=== PATIENT | male | born 1950 | race Caucasian/White ===

== ENCOUNTER 2019-01-07 02:46 | Outpatient (CLI) | payer MEDICARE, OTHER, SELFPAY ==
[2019-01-07 09:31] LABS: Anion Gap 8.8 mmol/L (3-11); BUN 21 mg/dL (7-18); CO2 28.2 mmol/L (21.0-32.0); CREATININE 1.07 mg/dL (0.70-1.30); Calcium 9.6 mg/dL (8.5-10.1); Chloride 102 mmol/L (98-107); Cholesterol 256 mg/dL (50-200); Glucose 106 mg/dL (70-100); HDL Cholesterol 74 mg/dL (40-60); LDL CHOLESTEROL 160 mg/dL (<100); Potassium 4.3 mmol/L (3.5-5.1); Sodium 139 mmol/L (136-145); Triglyceride 76 mg/dL (30-150)
[2019-01-10 09:53] LABS: PSA, Screening 2.7 ng/ml (0-6.5)
== END 2019-01-07 03:06 ==
PROVIDERS: PCP Emergency Medicine; Visit Provider Family Medicine
DX: I10 Essential (primary) hypertension (principal); N40.0 Benign prostatic hyperplasia without lower urinary tract symptoms; Z12.5 Encounter for screening for malignant neoplasm of prostate
CPT/HCPCS: 36415; 80048; 80061; 83721; 84153

== ENCOUNTER 2019-01-21 13:56 | Outpatient (CLI) | payer MEDICARE, OTHER, SELFPAY ==
[2019-01-21 14:21] LABS: Abs Immature Grans 0.04 k/cumm (0.0-0.09); Absolute Basophil Count 0.01 k/cumm (0.0-0.2); Absolute Eosinophil Count 0.12 k/cumm (0.0-0.7); Absolute Lymphocyte Count 1.88 k/cumm (1.2-3.4); Absolute Monocyte Count 0.73 k/cumm (0.11-0.7); Absolute Neutrophil Count 3.61 k/cumm (1.2-6.7); Basophils % 0.2; Eosinophils % 1.9; HCT 44.1 % (40.0-50.0); Immature Grans % 0.6; Lymphocytes % 29.4; Mean Corpuscular Hemoglobin 30.9 pg (27.0-33.0); Mean Corpuscular Volume 90.9 fL (80-95); Mean Platelet Volume 10.3 fL (8.0-11.0); Monocytes % 11.4; Neutrophils % 56.5; Platelet Count 173 x1000/uL (130-400); RBC 4.85 m/cumm (4.50-6.00); RBC Distribution Width 13.2 % (11.8-14.1); White Blood Cell Count 6.39 k/cumm (4.4-10.8)
[2019-01-21 14:52] LABS: D-Dimer 4422 ng/mlFEU (<500)
[2019-01-21 15:15] LABS: ALT 30 U/L (12-78); AST 13 U/L (15-37); Alkaline Phosphatase 95 U/L (46-116); Anion Gap 8.6 mmol/L (3-11); BUN 17 mg/dL (7-18); Bilirubin, Total 1.7 mg/dL (0.2-1.0); C-Reactive Protein 0.96 mg/dL (0.0-0.3); CO2 28.4 mmol/L (21.0-32.0); CREATININE 0.92 mg/dL (0.70-1.30); Calcium 9.6 mg/dL (8.5-10.1); Chloride 103 mmol/L (98-107); Glucose 95 mg/dL (70-100); NT-proBNP 120 pg/mL; Potassium 4.5 mmol/L (3.5-5.1); Sodium 140 mmol/L (136-145); Total Protein 7.1 g/dL (6.4-8.2)
[2019-01-21] MEDS: Omnipaque 350 MG/ML 100 ML BTL IJ (15:19)
--- NOTE | 2019-01-21 15:20 | DI.CT_ITS ---
SYMPTOMS/DIAGNOSIS: DYSPNEA ON EXERTION X 1 WEEK, + D-DIMER, FLEW ON PLAN [address] ANGIOGRAPHY, CHEST: CT angiography was performed with multi slice acquisition and multi planar and 3D reconstruction. CT angiography of the chest was performed with a bolus infusion of 100 cc of Omnipaque 350. Images obtained through the upper abdomen show unremarkable appearance of visualized portions of the liver, spleen and pancreas. No mediastinal or hilar adenopathy seen. Tracheobronchial tree appears intact. Thoracic aorta is of normal diameter and there is no evidence of dissection. There are multiple pulmonary emboli bilaterally with emboli straddling the lobar vessels and extending into segmental and subsegmental vessels in multiple distributions bilaterally. There are small peripheral mass-like radiodensities seen on the right peripherally in the lower lobe posteriorly and also associated with the minor fissure on the right anteriorly. These have an appearance which may represent rounded atelectasis or Torres's hump of pulmonary infarct; however, other etiologies are not excluded on the basis of this examination and follow-up CT is requested following treatment to exclude intrapulmonary mass. CONCLUSION: Multiple pulmonary emboli with moderate to large clot burden as described above. Peripheral nodular radiodensities in right upper lobe and right lower lobe; these may represent peripheral pulmonary infarcts, but other etiologies including neoplasm are not excluded and a follow-up chest CT is requested following treatment to document resolution of these findings.
[2019-01-21 16:23] LABS: ESR 10 MM/HR (1-20)
== END 2019-01-21 14:16 ==
PROVIDERS: PCP Emergency Medicine; Visit Provider Emergency Medicine
DX: R06.09 Other forms of dyspnea (principal); I50.9 Heart failure, unspecified; R79.1 Abnormal coagulation profile; I26.99 Other pulmonary embolism without acute cor pulmonale; J98.4 Other disorders of lung
CPT/HCPCS: 71275; 80053; 85652; 83880; 85025; 85379; 86140; J3490

== ENCOUNTER 2019-01-21 15:37 | Observation (INO) | payer MEDICARE, OTHER, SELFPAY ==
[2019-01-21] VITALS (29 sets, daily range): BP systolic 117–159; BP diastolic 75–91; PULSE 55–149; RESP 12–23; TEMP 36.1–36.7; O2SAT 94–100
--- NOTE | 2019-01-21 16:00 | W.ED.GENAD ---
Discharge Plan Disposition Patient Disposition: [facility] INPATIENT Condition: Improving Discharge Details Chief Complaint: SOB Clinical Impression: Pulmonary embolism, bilateral Primary Care Provider: [facility] ED Provider: Enrique Mcdonald Home Meds and New Rx's Prescriptions: No Action aspirin [Aspir-81] 81 MG tablet,delayed release (DR/EC) 81 mg PO DAILY RF: 0 polyethylene glycol 3350 [Miralax] 17 GM powder in packet 255 gm PO for colonoscopy Qty: 1 RF: 0 lisinopril 20 MG tablet 20 mg PO BID Qty: 180 RF: 4 atorvastatin 20 mg tablet 20 mg PO DAILY Qty: 90 RF: 4 Medical Decision Making 68-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 The patient states he has had months of intermittent episodes of dyspnea on exertion, primarily when jogging. He notes that he returned home from wintering in [place] in early December. He notes over the past 3 to 5 days time he has had an increase in his intolerance of exercise and notes that he was unable to jog his usual 3 to 4 miles yesterday. He denies any chest pain or palpitations. Due to the dyspnea on exertion, the patient was referred for outpatient CT scan and as above it showed bilateral PEs without evidence of right heart strain. Patient had outpatient blood work obtained which is still pending. Upon arrival, he was placed on a monitored bed, EKG obtained and images reviewed with Dr. Magaña. Patient is in no acute distress and vital signs are reassuring with normal oxygenation. Laboratories reassuring with negative troponin. Patient initiated on heparin drip and will require admission. Lab Data Lab results reviewed: Yes I reviewed the patient's lab results. Laboratory Results - last 24 hr 01/21/19 01/21/19 14:15 14:15 PT 9.5 INR 1.0 APTT 21.4 Sodium Cancelled Potassium Cancelled Chloride Cancelled Carbon Dioxide Cancelled Anion Gap Cancelled BUN Cancelled Creatinine Cancelled Estimated GFR/1.73 m2 Cancelled Glucose Cancelled Calcium Cancelled Magnesium 2.3 Total Bilirubin Cancelled AST Cancelled ALT Cancelled Alkaline Phosphatase Cancelled Troponin I < 0.02 Total Protein Cancelled Albumin Cancelled ECG Data Attestation: I personally reviewed and interpreted this ECG (s) as follows: Interpretation: Normal sinus rhythm with a rate of 54, the QRS is narrow, and no ST segment elevation. HPI General Mode of arrival: ambulatory. Date/Time Provider Initiated Documentation: 01/21/19 15:38. Limitations to Documentation: no limitations. Information obtained by: patient. History of Present Illness 68 year old M presents to the emergency department with the chief complaint of I have bilateral PEs on my CAT scan this afternoon. RICCI for months, described as mild, Quality is described as dull, and is localized to the chest. Patient reports no radiation. Patient started experiencing this week(s) and it has been intermittent. Rest improves symptom(s), Other factors that worsen symptoms (Exercise) . Patient notes denies chest pain, syncope and weakness. Patient did receive the following treatments prior to arrival, none Related Data Home Medications Medication Instructions Recorded Confirmed aspirin [Aspir 81] 81 mg PO DAILY tab-cap 06/08/17 01/21/19 polyethylene glycol 3350 [Miralax] 255 gm PO for colonoscopy #1 gm 06/08/17 01/21/19 lisinopril 20 mg PO BID #180 tab-cap 05/10/18 01/21/19 atorvastatin 20 mg tablet 20 mg PO DAILY #90 tab 01/14/19 01/21/19 Previous Rx's Medication Instructions Recorded polyethylene glycol 3350 [Miralax] 255 gm PO for colonoscopy #1 gm 06/08/17 lisinopril 20 mg PO BID #180 tab-cap 05/10/18 atorvastatin 20 mg tablet 20 mg PO DAILY #90 tab 01/14/19 Allergies Allergy/AdvReac Type Severity Reaction Status Date / Time No Known Allergies Allergy Unverified 01/21/19 15:44 General Stated Complaint: SOB DIANNA: 3 Review of Systems Review of Systems Travel home from [place] in early December. No leg pain or swelling. Increased shortness of breath with 4 mile jog 2 days ago. 8 systems reviewed and otherwise neg [facility] Medical History HTN (hypertension) Surgical History Cholecystectomy Colonoscopy - [facility] (06/24/17) Social History Smoking/Tobacco Use Status: Never Alcohol Intake: current Alcohol Intake frequency: a few times a week Drug use: Never Substance use type: does not use Do you feel safe at home: Yes Do you feel safe in your relationship?: Yes Exam Narrative Exam Narrative: GEN: awake, alert, oriented 3. Pleasant, well groomed, interactive. HEAD: Normocephalic, atraumatic ENT: Mucous membranes moist, oropharynx unremarkable, External ear exam unremarkable EYES: PERRL, EOMI NECK: Full ROM, no KIN, no menigismus CHEST/RESP: Nontender, clear to auscultation bilateral, no wheeze/rhonchi/rales CARDIOVASCULAR: RRR, no murmur, rub bill. 2+ Rad pulse bilateral ABDOMEN: Soft, nontender, no mass. +Bowel sounds EXT: Full ROM, no edema, no rash Neuro: Grossly normal neurologic exam, conversant, interactive. Psych: Speech fluent, thoughts congruent, affect normal Course Vital Signs Temperature 36.7 C 01/21/19 15:42 Pulse 55 L 01/21/19 15:42 Respiratory Rate 17 01/21/19 15:42 Blood Pressure 155/86 H 01/21/19 15:42 Pulse Oximetry 98 01/21/19 15:42 Temperature 36.7 C 01/21/19 15:42 Temperature Source Temporal Artery Scan 01/21/19 15:42 Pulse 55 L 01/21/19 15:42 Respiratory Rate 17 01/21/19 15:42 Respiratory Effort Non-Labored 01/21/19 15:42 Blood Pressure 155/86 H 01/21/19 15:42 Pulse Oximetry 98 01/21/19 15:42 Oxygen Delivery Method Room Air 01/21/19 15:42 Oxygen Flow Rate 0 01/21/19 15:42 Pain Level 0 01/21/19 15:42
--- NOTE | 2019-01-21 16:04 | ED.GENADUL_ITS ---
Discharge Plan Disposition Patient Disposition: [facility] INPATIENT Condition: Improving Discharge Details Chief Complaint: SOB Clinical Impression: Pulmonary embolism, bilateral Primary Care Provider: [facility] ED Provider: Enrique Mcdonald Home Meds and New Rx's Prescriptions: No Action aspirin [Aspir-81] 81 MG tablet,delayed release (DR/EC) 81 mg PO DAILY RF: 0 polyethylene glycol 3350 [Miralax] 17 GM powder in packet 255 gm PO for colonoscopy Qty: 1 RF: 0 lisinopril 20 MG tablet 20 mg PO BID Qty: 180 RF: 4 atorvastatin 20 mg tablet 20 mg PO DAILY Qty: 90 RF: 4 Medical Decision Making 68-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 The patient states he has had months of intermittent episodes of dyspnea on exertion, primarily when jogging. He notes that he returned home from wintering in [place] in early December. He notes over the past 3 to 5 days time he has had an increase in his intolerance of exercise and notes that he was unable to jog his usual 3 to 4 miles yesterday. He denies any chest pain or palpitations. Due to the dyspnea on exertion, the patient was referred for outpatient CT scan and as above it showed bilateral PEs without evidence of right heart strain. Patient had outpatient blood work obtained which is still pending. Upon arrival, he was placed on a monitored bed, EKG obtained and images reviewed with Dr. Magaña. Patient is in no acute distress and vital signs are reassuring with normal oxygenation. Laboratories reassuring with negative troponin. Patient initiated on heparin drip and will require admission. Lab Data Lab results reviewed: Yes I reviewed the patient's lab results. Laboratory Results - last 24 hr 01/21/19 01/21/19 14:15 14:15 PT 9.5 INR 1.0 APTT 21.4 Sodium Cancelled Potassium Cancelled Chloride Cancelled Carbon Dioxide Cancelled Anion Gap Cancelled BUN Cancelled Creatinine Cancelled Estimated GFR/1.73 m2 Cancelled Glucose Cancelled Calcium Cancelled Magnesium 2.3 Total Bilirubin Cancelled AST Cancelled ALT Cancelled Alkaline Phosphatase Cancelled Troponin I < 0.02 Total Protein Cancelled Albumin Cancelled ECG Data Attestation: I personally reviewed and interpreted this ECG (s) as follows: Interpretation: Normal sinus rhythm with a rate of 54, the QRS is narrow, and no ST segment elevation. HPI General Mode of arrival: ambulatory . Date/Time Provider Initiated Documentation: 01/21/19 15:38 . Limitations to Documentation: no limitations . Information obtained by: patient . History of Present Illness 68 year old M presents to the emergency department with the chief complaint of I have bilateral PEs on my CAT scan this afternoon. RICCI for months, described as mild, Quality is described as dull, and is localized to the chest. Patient reports no radiation. Patient started experiencing this week(s) and it has been intermittent. Rest improves symptom(s), Other factors that worsen symptoms (Exercise) . Patient notes denies chest pain, syncope and weakness. Patient did receive the following treatments prior to arrival, none Related Data Home Medications Medication Instructions Recorded Confirmed aspirin [Aspir 81] 81 mg PO DAILY tab-cap 06/08/17 01/21/19 polyethylene glycol 3350 [Miralax] 255 gm PO for colonoscopy #1 gm 06/08/17 01/21/19 lisinopril 20 mg PO BID #180 tab-cap 05/10/18 01/21/19 atorvastatin 20 mg tablet 20 mg PO DAILY #90 tab 01/14/19 01/21/19 Previous Rx's Medication Instructions Recorded polyethylene glycol 3350 [Miralax] 255 gm PO for colonoscopy #1 gm 06/08/17 lisinopril 20 mg PO BID #180 tab-cap 05/10/18 atorvastatin 20 mg tablet 20 mg PO DAILY #90 tab 01/14/19 Allergies Allergy/AdvReac Type Severity Reaction Status Date / Time No Known Allergies Allergy Unverified 01/21/19 15:44 General Stated Complaint: SOB DIANNA: 3 Review of Systems Review of Systems Travel home from [place] in early December. No leg pain or swelling. Increased shortness of breath with 4 mile jog 2 days ago. 8 systems reviewed and otherwise neg [facility] Medical History HTN (hypertension) Surgical History Cholecystectomy Colonoscopy - [facility] (06/24/17) Social History Smoking/Tobacco Use Status: Never Alcohol Intake: current Alcohol Intake frequency: a few times a week Drug use: Never Substance use type: does not use Do you feel safe at home: Yes Do you feel safe in your relationship?: Yes Exam Narrative Exam Narrative: GEN: awake, alert, oriented 3. Pleasant, well groomed, interactive. HEAD: Normocephalic, atraumatic ENT: Mucous membranes moist, oropharynx unremarkable, External ear exam unremarkable EYES: PERRL, EOMI NECK: Full ROM, no KIN, no menigismus CHEST/RESP: Nontender, clear to auscultation bilateral, no wheeze/rhonchi/rales CARDIOVASCULAR: RRR, no murmur, rub bill. 2+ Rad pulse bilateral ABDOMEN: Soft, nontender, no mass. +Bowel sounds EXT: Full ROM, no edema, no rash Neuro: Grossly normal neurologic exam, conversant, interactive. Psych: Speech fluent, thoughts congruent, affect normal Course Vital Signs Temperature 36.7 C 01/21/19 15:42 Pulse 55 L 01/21/19 15:42 Respiratory Rate 17 01/21/19 15:42 Blood Pressure 155/86 H 01/21/19 15:42 Pulse Oximetry 98 01/21/19 15:42 Temperature 36.7 C 01/21/19 15:42 Temperature Source Temporal Artery Scan 01/21/19 15:42 Pulse 55 L 01/21/19 15:42 Respiratory Rate 17 01/21/19 15:42 Respiratory Effort Non-Labored 01/21/19 15:42 Blood Pressure 155/86 H 01/21/19 15:42 Pulse Oximetry 98 01/21/19 15:42 Oxygen Delivery Method Room Air 01/21/19 15:42 Oxygen Flow Rate 0 01/21/19 15:42 Pain Level 0 01/21/19 15:42
[2019-01-21 16:26] LABS: PTT Activated 21.4 sec (21.0-31.4); Prothrombin Time 9.5 sec (9.3-11.0)
[2019-01-21 16:34] LABS: Magnesium 2.3 mg/dL (1.8-2.4)
[2019-01-21 16:36] LABS: Troponin I < 0.02 ng/mL (0.00-0.06)
[2019-01-21] MEDS: Heparin 5,000 UNITS/ML VIAL 5200 UNITS IV (16:36)
[2019-01-21] MEDS: Heparin 1,000 UNITS/ML VIAL 1800 UNITS IVP (17:54)
--- NOTE | 2019-01-21 20:04 | HPE_ITS ---
Date of service: 01/21/19 Time of Service: 20:04 Assessment and Plan (1) Pulmonary embolism and infarction: Current visit: Yes Status: Acute Patient is currently on heparin drip at 1550 unit/hr (18 units/kg/hr) however ACCP guidelines recommend us of LMWH (enoxaparin or fondaparinux) as first line treatment for DVT/PE due to increased bioavailability leading to faster therapeutic anticoagulation compared to unfractionated heparin and also due to decreased bleeding and decreased recurrent thrombosis and improved mortality. One could make an argument that he could have been started on Eliquis 10 mg BID in the emergency room and discharged home as he meets clinical criteria for outpatient treatment i.e., no hypoxemia, no hypotension, no tachycardia, age less than 80 and no comorbidities. However, given the clot burden seen on his CT scan, it is prudent to initiate treatment as an inpatient and then transition to Eliquis and discharge him home tomorrow. His PESI score is 80 which puts him into class II or low risk. He should continue Eliquis at 10 mg bid for next week then continue at 5 mg bid for 3 months. At that time I would check his d-dimer off anticoagulation and if normal and no other risks for future PE/DVT he could come off anticoagulation. However he should be sure to get close follow up. Also he needs follow up imaging of his CT to be sure that the right sided abnormalities is indeed a Torres's hump, i.e. pulmonary infarct and not a mass. 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 He also jogs up to 4 miles a day and plays softball couple days a week. Approximately 2 months ago he had an episode of right-sided pleuritic chest pain that awoke him at night. He thought perhaps he had a case of pleurisy and treated this with some Tylenol. However this recurred over 3 nights. He did not have any unusual shortness of breath with this although he had noted that on a couple of his hikes he was having some difficulty with increased dyspnea on those hikes. He and his return to [place] December 24 on a prolonged airflight. Since returning to [place] he began training with his family to participate in the [facility] marathon relay. He is been jogging 3 to 4 miles a day and since last Thursday, 5 days ago he noticed he was having difficulty running his 3 to 4 miles. 2 days ago he went for a run he could not even complete 1/4 mile and when this occurred again on he decided to see his salesperson recreational vehicles Dr. Plaza. Dr. Banks put Dr. Ramey through a series of tests today that included multiple laboratory studies as well as a CT angiogram of the chest. In summary Dr. Ramey was found to have multiple bilateral pulmonary emboli with moderate to large clot burden. The bilateral pulmonary emboli straddle the lobar vessels and extend into the segmental and subsegmental vessels in multiple distributions bilaterally. There is also small peripheral masslike radiodensity seen on the right periphery in the lower lobe posteriorly associated with the minor fissure on the right anteriorly. These have a rounded atelectatic or [place] hump appearance consistent with pulmonary infarct. Although the radiologist indicated that he could not exclude the possibility of intrapulmonary mass and recommend a follow-up CT scan following treatment of his pulmonary emboli. Dr. Plaza sent the patient into the emergency room to be started on a heparin drip and treated for pulmonary emboli. Patient denies any previous history of pulmonary emboli or DVT. He denies any leg trauma or prolonged inactivity. He denies any leg swelling nor any edema. Patient gets his usual cancer screening tests including colonoscopies and prostate exams. He states that he had a normal PSA last month. I reviewed this result and indeed his PSA was 2.7 as of January 07, 2019. Patient has a history of tubular adenomas he had 3 of these removed in the fall [address] Steve Ardon. Patient is due for follow-up colonoscopy in 2019. I advised the patient that he should probably have it done later this year after completion of his anticoagulation treatment for his pulmonary emboli. Patient is a non-smoker and is very physically active and otherwise has no other risk factors for pulmonary emboli other than his recent air travel from [place] to [place] however his symptoms actually began prior to returning to [place] and only recently in the last week have his symptoms become severe enough that he is curtailed his activity. The rest of his laboratory work-up was unremarkable. His CMP showed normal renal and liver function test and normal electrolytes and normal glucose. His proBNP was within normal limits at 120. His CBC was within normal limits and his sed rate was normal at 10. His d-dimer however was elevated at 4422. Because of the patient's age the PERC rule for screening for pulmonary embolism did not apply to him. His revised Bertie score is 1 which would put him in the low probability for pulmonary embolism. And using the Wells criteria for PE he also fell in the low probability category. Fortunately for the patient his salesperson recreational vehicles had a high suspicion for PE and obtained a d-dimer which was over 4000 and this prompted a CTA of his chest which demonstrated the bilateral pulmonary emboli and pulmonary infarct. Patient was treated in the emergency room with a heparin bolus of 5200 units which was 60 units/kg and begun on a heparin drip at 1550 units/h. I spoke with the ER personnel and requested an additional dose of heparin 1800 units for a total of 7000 units which would be equivalent to 80 units/kg. However upon further review of a ACCP guidelines for treatment of acute pulmonary emboli it is recommended the patient be treated with low molecular weight heparin. I will transition him from unfractionated heparin drip to low molecular weight heparin at a dose of 90 mg subcutaneous every 12 hours. Tomorrow the patient can be transitioned over to Eliquis at a dose of 10 mg twice a day for 7 days and then 5 mg twice a day for the next 3 months. Review of Systems Review of Systems All systems reviewed & are unremarkable except as noted in HPI and below Constitutional Reports system reviewed and no additional complaints, except as docu Eyes Reports system reviewed and no additional complaints, except as docu ENT Reports system reviewed and no additional complaints, except as docu Cardiovascular Denies chest pain, Denies chest pain with activity, Denies syncope, Denies pedal edema, Denies edema, Denies leg edema, Denies lightheadedness, Reports dyspnea on exertion and Denies paroxysmal nocturnal dyspnea Respiratory Reports cough (dry nonproductive cough x few months), Denies hemoptysis, Denies pain on inspiration (none now but 2 months ago had 3 nights of R. sided pleuritic chest pain) and Reports dyspnea on exertion Gastrointestinal Reports system reviewed and no additional complaints, except as docu Genitourinary Reports system reviewed and no additional complaints, except [facility] Musculoskeletal Reports arthralgias (knees after prolonged runs; left shoulder rotator cuff injury), Denies joint swelling, Denies muscle weakness and Denies radiating pain into limb Integumentary/Breasts Reports system reviewed and no additional complaints, except as [facility] Neurologic Reports system reviewed and no additional complaints, except as docu and Denies syncope Endocrine Reports system reviewed and no additional complaints, except as [facility] Hematologic/Lymphatic Reports system reviewed and no additional complaints, except as [facility] Allergic/Immunologic Reports system reviewed and no additional complaints, except as docu PFSH Medical History Hyperlipidemia (Chronic) Essential hypertension (Chronic) Tubular adenoma of colon (Chronic 06/24/17) HTN (hypertension) Surgical History Cholecystectomy Colonoscopy - MAC (06/24/17) Family History Brother Prostate cancer Father Ischemic bowel disease Atherosclerotic peripheral vascular disease of extremity Mother Non Hodgkin's lymphoma Chemotherapy induced cardiomyopathy Myocardial infarction Social History Smoking/Tobacco Use Status: Never Alcohol Intake: current Alcohol Intake frequency: a few times a week Drug use: Never Substance use type: does not use Household members: family Housing: house Number of Children: 2 Education Level: other 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 Meds Home Medications Medication Instructions Recorded Confirmed Type aspirin [Aspir 81] 81 mg PO DAILY tab-cap 06/08/17 01/21/19 History lisinopril 20 mg PO BID #180 tab-cap 05/10/18 01/21/19 Rx atorvastatin 20 mg tablet 20 mg PO DAILY #90 tab 01/14/19 01/21/19 Rx Allergies Allergy/AdvReac Type Severity Reaction Status Date / Time No Known Allergies Allergy Unverified 01/21/19 15:44 Exam Const General: cooperative, no acute distress and well groomed Nutritional Appearance: average body habitus and well nourished Orientation: alert, awake and oriented x3 HENMT Head: normal to inspection, no palpable skull fracture, normocephalic and atraumatic Ears: external ears normal and TM's normal bilaterally General nose exam: external nose normal, nares normal and no nasal discharge Face and sinus: normal facial exam, sinuses nontender and face symmetric Mouth: oral mucosae normal, lip normal, tongue normal, oropharynx normal and moist mucous membranes Teeth and gingiva: dentition normal and gingiva normal Throat: posterior oropharynx normal and uvula midline Eyes General: appearance normal, both eyes and all related structures Visual Brandon: normal visual brandon by confrontation Alignment and Position: alignment normal Periorbital: periorbital findings normal Eyelids: eyelids normal Conjunctivae: conjunctivae normal Sclera: sclerae normal Cornea: corneas normal Pupils: PERRL, normal by confrontation and accommodation normal EOM: EOM intact bilaterally Direct ophthalmoscopy: normal light reflex, no photophobia, no papilledema, fundi normal bilaterally and anterior chamber normal Neck Neck: normal visual inspection, full ROM, no lymphadenopathy, trachea midline and supple Thyroid: thyroid normal Carotids: normal carotid upstroke Lymphatic: no lymphadenopathy noted Chest Chest: normal inspection of the chest and normal palpation of entire chest wall Resp Effort & Inspection: normal respiratory effort and able to speak in complete sentences Auscultation: clear to auscultation bilaterally Cardio Jugular venous pressure: no JVD Palpation: normal PMI Rate: regular rate Rhythm: regular rhythm Heart Sounds: S1 normal, S2 normal and normal, physiologic split S2 Pulses: normal peripheral pulses GI Inspection: normal to inspection Palpation: soft, no hepatosplenomegaly and nontender Percussion: normal to percussion Auscultation: normal bowel sounds Skin General skin exam: no rashes or lesions noted, elasticity normal and turgor normal Lesions: no lesions Rashes: no rashes Trauma: no lacerations or abrasions Hair: normal Nails: normal Neuro General: alert, awake, oriented x3, moves all extremities and no focal motor deficits Cognition: normal cognition Speech: speech normal Extrem General: normal to inspection, full ROM, normal capillary refill, no joint enlargement, no clubbing, cyanosis or edema and no calf tenderness bilaterally Right lower extremity: normal to inspection, full ROM, normal capillary refill and no joint enlargement; no edema Left lower extremity: normal to inspection, full ROM, normal capillary refill and no joint enlargement; no edema Psych Appearance: grossly normal and well kempt Mental Status: mental status grossly normal Speech and Movement: speech and movement normal Mood: congruent mood Affect: normal affect Attitude: cooperative Thought Process: normal Thought Content: normal Insight: insight good Judgment: judgment good Results Imaging CT scan - chest: image reviewed (CONCLUSION: Multiple pulmonary emboli with moderate to large clot burden as described above. Peripheral nodular radiodensities in right upper lobe and right lower lobe; these may represent peripheral pulmonary infarcts, but other etiologies including neoplasm are not excluded and a follow-up chest) Labs : 01/21/19 15:58 01/21/19 14:15 Laboratory Results - last 24 hr 01/21/19 01/21/19 14:15 14:15 PT 9.5 INR 1.0 APTT 21.4 Sodium Cancelled Potassium Cancelled Chloride Cancelled Carbon Dioxide Cancelled Anion Gap Cancelled BUN Cancelled Creatinine Cancelled Estimated GFR/1.73 m2 Cancelled Glucose Cancelled Calcium Cancelled Magnesium 2.3 Total Bilirubin Cancelled AST Cancelled ALT Cancelled Alkaline Phosphatase Cancelled Troponin I < 0.02 Total Protein Cancelled Albumin Cancelled Last Vital Signs Temp 36.1 C L 01/21/19 18:36 Pulse 60 01/21/19 18:36 Resp 14 01/21/19 18:36 BP 152/85 H 01/21/19 18:36 Pulse Ox 97 01/21/19 18:36
[2019-01-21 22:43] LABS: PTT Activated 70.7 sec (21.0-31.4)
[2019-01-22 00:08] VITALS: BP 126/68; PULSE 64; RESP 17; TEMP 36.3; O2SAT 96
[2019-01-22] MEDS: Enoxaparin 100 MG/ML SYR 90 MG SC (00:14)
[2019-01-22] MEDS: Lisinopril 20 MG TAB PO (08:38)
[2019-01-22] MEDS: Atorvastatin 20 MG TAB PO (08:38)
[2019-01-22 08:39] VITALS: BP 137/83; PULSE 53; RESP 16; TEMP 36.3; O2SAT 97
[2019-01-22 11:30] VITALS: BP 137/82; PULSE 55; RESP 18; TEMP 36.4; O2SAT 96
--- NOTE | 2019-01-22 11:50 | DI.CT_ITS ---
SYMPTOMS/DIAGNOSIS: NEW PULMONARY EMBOLI, ABDOMINAL DISCOMFORT CT OF THE ABDOMEN AND PELVIS: Comparison is made with a chest CT for PE dated January,. Filling defects are again seen in the lower lobe arteries consistent with the previously noted pulmonary emboli. There has been slight interval decrease in size of a previously noted right lower lobe nodule, now measuring 10 mm. No pleural or pericardial effusions are seen. The patient is status post cholecystectomy. The spleen, adrenals, pancreas and right kidney are unremarkable. There is a cyst at the lower pole of the left kidney. There is a circumaortic left renal vein. The aorta shows mild calcification. The appendix appears normal. There is no bowel dilatation or inflammatory change. There is no free air or free fluid. There is a small amount of fat in both inguinal canals. No free air, free fluid or adenopathy is seen. The prostate appears enlarged. The bladder is unremarkable. Degenerative changes are seen in the spine. IMPRESSION: No acute abnormality is seen in the abdomen or pelvis. A 10 mm nodule in the right lower lobe has decreased in size. Further followup is recommended.
[2019-01-22] MEDS: Omnipaque 350 MG/ML 100 ML BTL IJ (11:55)
[2019-01-22] MEDS: Apixaban 5 MG TAB 10 MG PO (12:07)
--- NOTE | 2019-01-22 12:59 | DI.VRAD_ITS ---
EXAM: CT Abdomen and Pelvis With Contrast EXAM DATE/TIME: 01/22/2019 10:04 AM CLINICAL HISTORY: 68 years old, male; Signs and symptoms; Other: New pes, abdominal discomfort TECHNIQUE: Imaging protocol: Axial computed tomography images of the abdomen and pelvis with intravenous contrast. Coronal and sagittal reformatted images were created and reviewed. Radiation optimization: All CT scans at this facility use at least one of these dose optimization techniques: automated exposure control; mA and/or kV adjustment per patient size (includes targeted exams where dose is matched to clinical indication); or iterative reconstruction. Contrast material: OMNIPAQUE; Contrast volume: 100 ml; Contrast route: IV; COMPARISON: CTA chest 01/21/2019. FINDINGS: Lungs: There is redemonstration of a 10 mm nodule in the subpleural right lower lobe. ABDOMEN: Liver: There are nonspecific liver hypodensities which likely represent cysts (24/4, 17/4, 22/4). the liver is otherwise unremarkable. Gallbladder and bile ducts: The patient is status post cholecystectomy. Pancreas: Normal. No ductal dilation. Spleen: Normal. No splenomegaly. Adrenals: Normal. No mass. Kidneys and ureters: There is a simple cyst in the left kidney. The kidneys are otherwise unremarkable with no evidence of hydronephrosis or perinephric stranding. Stomach and bowel: There is no evidence of diverticulitis. There is no evidence of intestinal obstruction. A knuckle of the descending colon extends into the left inguinal ring with no obstruction or wall edema. Appendix: The appendix is normal in appearance and there are no periappendiceal inflammatory changes. PELVIS: Bladder: Unremarkable as visualized. Reproductive: Unremarkable as visualized. ABDOMEN and PELVIS: Intraperitoneal space: Normal. No free air. No significant fluid collection. Bones/joints: There is multilevel degenerative disc disease.No acute osseous abnormality is identified. Soft tissues: Unremarkable. Vasculature: There are intraluminal filling defects in lower lobe pulmonary arteries consistent with the patient's known acute pulmonary emboli. Lymph nodes: Normal. No enlarged lymph nodes. IMPRESSION: 1. There is no evidence of bowel obstruction, abscess or free air. 2. No acute intra-abdominal or pelvic abnormality is identified. Remainder of non-emergent findings as described above. Dictated and Authenticated by: Denisse Zepeda MD. Ordering:MENDY Miller MD
--- NOTE | 2019-01-22 13:56 | DSE_ITS ---
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 He has a prior history of HTN and dyslipidemia, but is otherwise in good health and very active. Approximately 2 months ago the patient reports an episode of right-sided pleuritic chest pain that awoke him at night, but with discomfort alleviated with OTC pain medication. This was not accompanied by any shortness of breath. He also reported some subjective dyspnea on a few subsequent hikes while in [place]. He and his returned to [facility] a month ago on a prolonged airflight. Since returning to [place] he began training with his family to participate in the [facility] [employer] relay. He has been jogging 3 to 4 miles a day, but reports onset of dyspnea approximately 5 days prior to admission. 2 days prior to his admission he reports worsening dyspnea to the point that he was severely limited with his running, prompting a visit to his PCP Dr. Plaza. Work-up included fairly unremarkable labs with the exception of a significantly elevated DDimer, leading to a subsequent CT showing multiple b/l Pulmonary Emboli, with moderate to large clot burden. He also had evidence of likely pulmonary infarcts. The patient was at that time referred to the ED for admission. Since the time of admission Dr. Ramey has remained hemodynamically stable, without evidence of tachycardia, hypotension, or hypoxia. Given his complaints of recent increase in 'belching' and subjective mild abdominal discomfort a CT of the abdomen and pelvis was obtained, and ruled out occult malignancy. The patient also reports his routine health screening tests to be up to date, including Prostate exam and Colonoscopy. He has also had no prior history of DVT or PE, and has no evidence of LE Edema at this time. His labwork is also unremarkable. He was transitioned from Therapeutic Enoxaparin to oral Apixaban prior to discharge. At this time likely precipitous for patient's symptoms may be prolonged air travel, although his symptoms may have predated his trip back to [place] and therefore etiology remains ambiguous. Do recommend outpatient follow-up and consideration for potential Hematology consult as well. Also discussed potential addition of PPI for GI protection, which the patient will discuss with his PCP. Daily aspirin will be discontinued. A repeat CT of the chest is recommended in a few weeks' time to ensure that current abnormalities do represent pulmonary infarcts and not neoplasm. As there were no signs of RV strain on CT or by EKG an ECHO was not officially recommended to the patient, but can certainly be pursued as an outpatient if deemed appropriate - unfortunately access to ultrasound and ECHO was limited over the weekend at the time of patient's admission. Home Meds and New Rx's Prescriptions: New Eliquis 5 mg Tablet 5 mg PO BID Qty: 70 RF: 0 Continued lisinopril 20 MG tablet 20 mg PO BID Qty: 180 RF: 4 atorvastatin 20 mg tablet 20 mg PO DAILY Qty: 90 RF: 4 Discontinued aspirin [Aspir-81] 81 MG tablet,delayed release (DR/EC) 81 mg PO DAILY RF: 0 Discharge Instructions Stand Alone Forms: Nursing Discharge Form Referrals: Rayray Plaza DO [Primary Care Provider] - Activity:: No Strenuous Activity Equipment/Supplies:: No Equipment Needed Diet:: As Tolerated Discharge Orders Discharge Orders: Discharge Order (Routine); Ordered 01/22/19 Ordered By: Paul Person Discharge Data Discharge Date/Time-TO BE ENTERED AT DEPARTURE: 01/22/19 14:15 Exam Narrative Exam Narrative: General: Patient appears comfortable, AAOX3, NAD Neck: Supple CV: Regular, nontachycardic, S1S2, No rubs, murmurs, or gallops. Pulmonary: Clear to auscultation bilaterally, no crackles, wheezing, or rhonchi Abdomen: + Bowel Sounds, soft, nontender, nondistended Vascular: No lower extremity edema Psych: Normal mood and affect. DS: Data Vitals/I&O Vitals and I&O: Vital Signs Temperature 36.4 C L 01/22/19 11:30 Temperature Source Tympanic 01/22/19 11:30 Pulse 55 L 01/22/19 11:30 Pulse Rhythm Regular 01/22/19 08:10 Pulse 61 01/21/19 17:47 Respiratory Rate 18 01/22/19 11:30 Respiratory Effort Non-Labored 01/22/19 08:10 Respiratory Depth Normal 01/22/19 08:10 Respiratory Pattern Normal 01/22/19 08:10 Blood Pressure 137/82 01/22/19 11:30 Blood Pressure Mean 101 01/21/19 17:46 Pulse Oximetry 96 01/22/19 11:30 Oxygen Delivery Method Room Air 01/22/19 11:30 Oxygen Flow Rate 0 01/22/19 11:30 Pain Level 0 01/21/19 18:36 Intake & Output 01/21/19 01/22/19 01/22/19 23:59 11:59 23:59 Intake Total 98.167 / 98.167 600 / 600 Balance 98.167 / 98.167 600 / 600 Weight 84.8 kg Intake: IV 98.167 / 98.167 Oral 600 / 600 Other: Comment voiding at macie into toilet. urine not seen by this nurse. Patient denies difficulties. Voiding Methods Toilet Toilet Completed studies during hospitalization [Text1]: Exam(s) a CT:CT chest PE CTA SYMPTOMS/DIAGNOSIS: DYSPNEA ON EXERTION X 1 WEEK, + D-DIMER, FLEW ON PLAN [address] ANGIOGRAPHY, CHEST: CT angiography was performed with multi slice acquisition and multi planar and 3D reconstruction. CT angiography of the chest was performed with a bolus infusion of 100 cc of Omnipaque 350. Images obtained through the upper abdomen show unremarkable appearance of visualized portions of the liver, spleen and pancreas. No mediastinal or hilar adenopathy seen. Tracheobronchial tree appears intact. Thoracic aorta is of normal diameter and there is no evidence of dissection. There are multiple pulmonary emboli bilaterally with emboli straddling the lobar vessels and extending into segmental and subsegmental vessels in multiple distributions bilaterally. There are small peripheral mass-like radiodensities seen on the right peripherally in the lower lobe posteriorly and also associated with the minor fissure on the right anteriorly. These have an appearance which may represent rounded atelectasis or Torres's hump of pulmonary infarct; however, other etiologies are not excluded on the basis of this examination and follow-up CT is requested following treatment to exclude intrapulmonary mass. CONCLUSION: Multiple pulmonary emboli with moderate to large clot burden as described above. Peripheral nodular radiodensities in right upper lobe and right lower lobe; these may represent peripheral pulmonary infarcts, but other etiologies including neoplasm are not excluded and a follow-up chest CT is requested following treatment to document resolution of these findings. Exam(s) 01/22/2019 EXAM: CT Abdomen and Pelvis With Contrast EXAM DATE/TIME: 01/22/2019 10:04 AM CLINICAL HISTORY: 68 years old, male; Signs and symptoms; Other: New pes, abdominal discomfort TECHNIQUE: Imaging protocol: Axial computed tomography images of the abdomen and pelvis with intravenous contrast. Coronal and sagittal reformatted images were created and reviewed. Radiation optimization: All CT scans at this facility use at least one of these dose optimization techniques: automated exposure control; mA and/or kV adjustment per patient size (includes targeted exams where dose is matched to clinical indication); or iterative reconstruction. Contrast material: OMNIPAQUE; Contrast volume: 100 ml; Contrast route: IV; COMPARISON: CTA chest 01/21/2019. FINDINGS: Lungs: There is redemonstration of a 10 mm nodule in the subpleural right lower lobe. ABDOMEN: Liver: There are nonspecific liver hypodensities which likely represent cysts (24/4, 17/4, 22/4). the liver is otherwise unremarkable. Gallbladder and bile ducts: The patient is status post cholecystectomy. Pancreas: Normal. No ductal dilation. Spleen: Normal. No splenomegaly. Adrenals: Normal. No mass. Kidneys and ureters: There is a simple cyst in the left kidney. The kidneys are otherwise unremarkable with no evidence of hydronephrosis or perinephric stranding. Stomach and bowel: There is no evidence of diverticulitis. There is no evidence of intestinal obstruction. A knuckle of the descending colon extends into the left inguinal ring with no obstruction or wall edema. Appendix: The appendix is normal in appearance and there are no periappendiceal inflammatory changes. PELVIS: Bladder: Unremarkable as visualized. Reproductive: Unremarkable as visualized. ABDOMEN and PELVIS: Intraperitoneal space: Normal. No free air. No significant fluid collection. Bones/joints: There is multilevel degenerative disc disease.No acute osseous abnormality is identified. Soft tissues: Unremarkable. Vasculature: There are intraluminal filling defects in lower lobe pulmonary arteries consistent with the patient's known acute pulmonary emboli. Lymph nodes: Normal. No enlarged lymph nodes. IMPRESSION: 1. There is no evidence of bowel obstruction, abscess or free air. 2. No acute intra-abdominal or pelvic abnormality is identified. Remainder of non-emergent findings as described above. Labs on day of discharge: Labs from last 24 hours 01/21/19 01/21/19 01/21/19 22:25 14:15 14:15 WBC Cancelled RBC Cancelled Hgb Cancelled Hct Cancelled MCV Cancelled MCH Cancelled MCHC Cancelled RDW Cancelled Plt Count Cancelled MPV Cancelled Immature Gran % Cancelled Neutrophils % Cancelled Band Neutrophils % Cancelled Lymphocytes % Cancelled Atypical Lymphs % Cancelled Monocytes % Cancelled Eosinophils % Cancelled Basophils % Cancelled Metamyelocytes % Cancelled Myelocytes % Cancelled Promyelocytes % Cancelled Absolute Neutrophils Cancelled Absolute Lymphocytes Cancelled Absolute Monocytes Cancelled Absolute Eosinophils Cancelled Absolute Basophils Cancelled Nucleated RBCs Cancelled Differential Comment Cancelled Other Cell Type Cancelled RBC Morphology Cancelled Polychromasia Cancelled Hypochromasia Cancelled Poikilocytosis Cancelled Basophilic Stippling Cancelled Anisocytosis Cancelled Microcytosis Cancelled Macrocytosis Cancelled Spherocytes Cancelled Target Cells Cancelled Tear Drop Cells Cancelled Ovalocytes Cancelled Stomatocytes Cancelled Dill-Greenock Bodies Cancelled Martinez Cells Cancelled Acanthocytes (Spur) Cancelled Schistocytes Cancelled PT 9.5 INR 1.0 APTT 70.7 H D 21.4 Sodium Potassium Chloride Carbon Dioxide Anion Gap BUN Creatinine Estimated GFR/1.73 m2 Glucose Calcium Magnesium Total Bilirubin AST ALT Alkaline Phosphatase Troponin I Total Protein Albumin 01/21/19 14:15 WBC RBC Hgb Hct MCV MCH MCHC RDW Plt Count MPV Immature Gran % Neutrophils % Band Neutrophils % Lymphocytes % Atypical Lymphs % Monocytes % Eosinophils % Basophils % Metamyelocytes % Myelocytes % Promyelocytes % Absolute Neutrophils Absolute Lymphocytes Absolute Monocytes Absolute Eosinophils Absolute Basophils Nucleated RBCs Differential Comment Other Cell Type RBC Morphology Polychromasia Hypochromasia Poikilocytosis Basophilic Stippling Anisocytosis Microcytosis Macrocytosis Spherocytes Target Cells Tear Drop Cells Ovalocytes Stomatocytes Dill-Greenock Bodies Martinez Cells Acanthocytes (Spur) Schistocytes PT INR APTT Sodium Cancelled Potassium Cancelled Chloride Cancelled Carbon Dioxide Cancelled Anion Gap Cancelled BUN Cancelled Creatinine Cancelled Estimated GFR/1.73 m2 Cancelled Glucose Cancelled Calcium Cancelled Magnesium 2.3 Total Bilirubin Cancelled AST Cancelled ALT Cancelled Alkaline Phosphatase Cancelled Troponin I < 0.02 Total Protein Cancelled Albumin Cancelled [facility] Medical History Pulmonary embolism and infarction (Acute ~01/21/19) Hyperlipidemia (Chronic) Essential hypertension (Chronic) Tubular adenoma of colon (Chronic 06/24/17) HTN (hypertension) Surgical History Cholecystectomy Colonoscopy - [facility] (06/24/17) Family History Brother Prostate cancer Father Ischemic bowel disease Atherosclerotic peripheral vascular disease of extremity Mother Non Hodgkin's lymphoma Chemotherapy induced cardiomyopathy Myocardial infarction Social History Smoking/Tobacco Use Status: Never Alcohol Intake: current Alcohol Intake frequency: a few times a week Drug use: Never Substance use type: does not use Household members: family Housing: house Number of Children: 2 Education Level: other 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
--- NOTE | 2019-01-22 17:17 | PDOC.CMDIS ---
LACE Index Scoring Tool - Questions: Length of Stay (in days): 1 Acuity (Admit via E.D.?): Yes E.D. Visits: 1 - Answers: Total Score: 5 Risk of Readmission: Low Risk Care Management Discharge Reason for Hospitalization: Bilateral Pulmonary emboli Discharge Plan: Donnell will return home and no services are needed. He will drive his own car. Patient/Family Education Needs: Discharge insructions and outpatient appointments.
== END 2019-01-22 14:15 | disposition home or self-care (01) ==
LOC: ER 18:21 → MS 19:22
PROVIDERS: Admitting Provider Internal Medicine; Emergency Provider Emergency Medicine; PCP Emergency Medicine; Visit Provider Internal Medicine
DX: I26.99 Other pulmonary embolism without acute cor pulmonale (principal); I10 Essential (primary) hypertension; E78.5 Hyperlipidemia, unspecified
CPT/HCPCS: 36415; 71275; 80053; 85652; 93005; 96365; 96366; 96376; 99217; 99220; 99285; 74177; 83735; 83880; 84484; 85025; 85379; 85610; 85730; 86140; 93010; G0378; J1644; J1650; J3490

== ENCOUNTER 2019-01-26 10:18 | Outpatient (CLI) | payer MEDICARE, OTHER, SELFPAY ==
--- NOTE | 2019-01-26 10:15 | DI.US_ITS ---
SYMPTOM/DIAGNOSIS: PE AND INFARCTION, I26.99 DUPLEX VENOUS ULTRASOUND BOTH LOWER EXTREMITIES: Duplex evaluation of the deep venous system of both lower extremities was performed according to the usual protocol. There is no evidence of DVT in the right deep venous circulation. There is visible thrombus in the left deep veins from the proximal popliteal vein through the posterior tibial veins. This thrombus is non occlusive. No thrombus is identified more proximally. CONCLUSION: Left DVT, non occlusive, popliteal and PTV.
== END 2019-01-26 10:38 ==
PROVIDERS: PCP Emergency Medicine; Visit Provider Emergency Medicine
DX: I26.99 Other pulmonary embolism without acute cor pulmonale (principal); I82.432 Acute embolism and thrombosis of left popliteal vein; I82.442 Acute embolism and thrombosis of left tibial vein
CPT/HCPCS: 93970

== ENCOUNTER 2019-04-08 03:13 | Outpatient (CLI) | payer MEDICARE, OTHER, SELFPAY ==
[2019-04-08 09:23] LABS: Calculated LDL 73 mg/dL; Cholesterol 142 mg/dL (50-200); HDL Cholesterol 58 mg/dL (40-60); Triglyceride 57 mg/dL (30-150)
== END 2019-04-08 03:33 ==
PROVIDERS: PCP Emergency Medicine; Visit Provider Emergency Medicine
DX: E78.5 Hyperlipidemia, unspecified (principal)
CPT/HCPCS: 36415; 80061; 83721

== ENCOUNTER 2019-07-13 07:51 | Outpatient (CLI) | payer MEDICARE, OTHER, SELFPAY ==
--- NOTE | 2019-07-13 12:02 | DI.US_ITS ---
EXAM: US THYROID CLINICAL HISTORY: left nodule E04.1 NONTOXIC SINGLE THYROID NODULE TECHNIQUE: Ultrasound performed using standard protocol. COMPARISON: No priors for comparison FINDINGS: The right lobe of the thyroid gland measures 4.6 x 1.2 x 1.5 cm. There are numerous thyroid nodules on the right. The largest is seen in the upper pole and measures 0.7 x 0.7 x 0.4 cm. There is some internal blood flow and contains both cystic and solid components. Several similar nodules are seen in the right lobe. The left lobe measures 3.8 x 1.1 x 1.2 cm. There are multiple solid nodules in the left lobe. The do minant nodule in the thyroid gland is in the inferior pole of the left lobe. It measures 1.6 x 1.2 x 1.3 cm. It is solid with internal blood flow. There are echogenic foci seen internally suggesting calcifications. The isthmus is within normal limits at 3.5 mm. IMPRESSION: Multinodular thyroid gland. There is a suspicious 1.6 x 1.2 x 1.3 cm solid vascular nodule in the lo wer pole of the left lobe. Biopsy should be considered for further evaluation.
== END 2019-07-13 08:11 ==
PROVIDERS: PCP Emergency Medicine; Visit Provider Emergency Medicine
DX: E04.1 Nontoxic single thyroid nodule (principal); E04.2 Nontoxic multinodular goiter
CPT/HCPCS: 76536

== ENCOUNTER 2020-05-08 08:03 | Outpatient (REF) | payer MEDICARE, OTHER, SELFPAY ==
[2020-05-08 13:28] LABS: BUN 26 mg/dL (7-18); Calcium 9.5 mg/dL (8.5-10.1); Calculated LDL 84 mg/dL (<100); Chloride 108 mmol/L (98-107); Cholesterol 153 mg/dL (<200); Glucose 112 mg/dL (74-106); HDL Cholesterol 58 mg/dL (40-60); Potassium 5.4 mmol/L (3.5-5.1); Sodium 140 mmol/L (136-145); Triglyceride 56 mg/dL (<150)
== END 2020-05-08 08:23 ==
LOC: LBN 08:03
PROVIDERS: PCP Emergency Medicine; Visit Provider Emergency Medicine
DX: E78.5 Hyperlipidemia, unspecified (principal); I10 Essential (primary) hypertension
CPT/HCPCS: 80048; 80061

== ENCOUNTER 2020-07-04 00:58 | Outpatient (CLI) | payer MEDICARE, OTHER, SELFPAY ==
--- NOTE | 2020-07-04 07:30 | DI.US_ITS ---
APPROVED REPORT EXAM: Comprehensive 2D, Doppler, and color-flow Echocardiogram Patient Location: Out-Patient Lithographic General Worker: Pauline Gunter RDCS (AE) Indications: Dilated Ascending Aorta Other Information Study Quality: Adequate Conclusion Left Ventricle : The left ventricle is normal size. The left ventricular systolic function is low nor mal. There is normal left ventricular wall thickness. There is normal LV segmental wall motion. The left ventricular diastolic function is normal. LVEF is 50%. Right Ventricle : The right ventricle is normal size. The right ventricular systolic function is norm al. The RVSP is 22.5 mmHg. Atria : The left atrium size is normal. The right atrium size is normal. Aortic Valve : The Aortic valve is sclerotic. Aortic valve is trileaflet. There is no aortic valvular stenosis. Mitral Valve : Mild mitral annular calcification. No evidence of mitral valve stenosis. Mild mitral r egurgitation. Great Vessels : The aortic root is normal in size. The ascending aorta is moderately dilated (4.1cm). Aortic arch is normal in caliber. IVC is normal in size and collapses >50% with inspiration. Compared to echocardiogram from outside hospital in June 2019, there is no significant change in a ortic dimensions, ejection fraction is now in the low normal range. Wall motion Left Ventricle The left ventricle is normal size. The left ventricular systolic function is low normal. There is nor mal left ventricular wall thickness. There is normal LV segmental wall motion. The left ventricular d iastolic function is normal. There is no ventricular septal defect visualized. LVEF is 50%. Right Ventricle The right ventricle is normal size. The right ventricular systolic function is normal. The RVSP is 22 .5 mmHg. Atria The left atrium size is normal. The right atrium size is normal. The interatrial septum is intact wit h no evidence for an atrial septal defect. Aortic Valve The Aortic valve is sclerotic. Aortic valve is trileaflet. There is no aortic valvular stenosis. No a ortic regurgitation is present. Mitral Valve Mild mitral annular calcification. No evidence of mitral valve stenosis. Mild mitral regurgitation. Tricuspid Valve The tricuspid valve is normal in structure. There is no tricuspid valve stenosis. Trace tricuspid reg urgitation. Pulmonic Valve The pulmonary valve is normal in structure. There is no pulmonic valvular stenosis. There is no pulmo santy valvular regurgitation. Great Vessels The aortic root is normal in size. The ascending aorta is moderately dilated (4.1cm). Aortic arch is normal in caliber. IVC is normal in size and collapses >50% with inspiration. Pericardium There is no pericardial effusion. 2D Dimensions IVSD d PLAX 0.85 cm M: 0.6-1.2 LV Vol A2C d MOD 146.4 mL LVPW d PLAX 0.91 cm M: 0.6 - 1.2 LV Vol A4C d MOD 133.6 mL LVID d PLAX 5.05 cm M: 4.2 - 5.8 LA vol/ BSA A2C s A-L 30.5 mL/m2 LVDs 3.55 cm M: 2.5 - 4.0 LA vol/ BSA A4C s A-L 18.8 mL/m2 Ao Root d 3.29 cm M: 3.1 - 3.7 LA Vol/ BSA Biplane s A-L 24.8 mL/m2 RA Area A4C 13.18 cm2 LA Area A4C s MOD 14.53 cm2 RA Vol/ BSA A4C s A-L 14.8 mL/m2 LA Area A2C s MOD 19.17 cm2 Ao Asc Diam d 4.12 cm M: 2.6 - 3.4 LV EF A4C MOD 48.9 % LV EF Teichholz 55.9 % LV EF A2C MOD 46.7 % LVEF (Fabian's) 47.63 % M: 52 - 72 LV EF Biplane MOD 47.6 % LV Volume 105.63 mL M: 62 - 150 SV 67.30 mL LV Volume Index 52.29 mL/m2 M: 34 - 74 SV Index 33.33 mL/m2 LV Vol Biplane MOD 141.3 mL FS 29.25 % M-Mode TAPSE 2.19 cm (M/F) >1.7 LV Diastology MV E' medial 0.075 (>0.07 m/s) E/A Ratio 0.9 LV E/e MED 9.50 (<14) MV E Vmax 0.71 (0.4-1.3 m/s) MV E' lateral 0.073 (>0.1 m/s) MV A Vmax 0.80 (0.4-1.3 m/s) LV E/e LAT 9.80 (<14) MV E/A Ratio 0.86 MV E/E' medial 9.52 MV E/E' lateral 9.84 Aortic Valve LVOT Area 3.85 cm2 AoV Area Vmax 2.90 cm2 LVOT Vmax 0.94 m/s AoV Area/ BSA (Vmax) 1.44 cm2/m2 LVOT Mean Haider. 0.57 m/s GIANCARLO Mean Haider. 2.51 cm2 LVOT Peak Grad 3.5 mmHg GIANCARLO Mean Haider. Index 1.24 cm2/m2 LVOT Mean Grad 1.6 mmHg LVOT VTI 0.190 m LVOT Diam s 2.20 cm AoV Vmax 1.24 m/s Velocity Ratio 0.75 AoV Mean Haider. 0.88 m/s AoV Peak Grad 6.2 mmHg LVOT SV 73.27 mL AoV Mean Grad 3.4 mmHg AoV VTI 0.244 m AoV Area VTI 3.00 cm2 AoV Area/ BSA (VTI) 1.49 cm/m2 Mitral Valve MV DT 207 (160-240 msec) MV PHT 60 msec MV Area PHT 3.66 cm2 Pulmonary Valve PV Vmax 0.87 (0.5-1.5 m/s) RVOT Peak Gr. 1.19 mmHg PV Peak Grad 3.1 mmHg RVOT Mean Gr. 0.60 mmHg PV Mean Grad 1.8 mmHg RVOT VTI 0.125 m PV VTI 0.155 m RVOT Vmax 0.54 m/s Tricuspid Valve TR Peak Grad 19.5 mmHg TR Vmax 2.21 m/s RA Pressure 3.00 mmHg RVSP (TR) 22.5 mmHg
== END 2020-07-04 01:18 ==
PROVIDERS: PCP Emergency Medicine; Visit Provider Emergency Medicine
DX: I10 Essential (primary) hypertension (principal); I77.819 Aortic ectasia, unspecified site; I34.0 Nonrheumatic mitral (valve) insufficiency
CPT/HCPCS: 93306

== ENCOUNTER → 2021-01-22 07:48 | Outpatient (BNVA) | payer MEDICARE, OTHER, SELFPAY | PROVIDERS: PCP Emergency Medicine; Referring Provider Emergency Medicine; Visit Provider Surgery | DX: C44.229 Squamous cell carcinoma of skin of left ear and external auricular canal (principal) | CPT/HCPCS: 11643; 99214; 99242 ==

== ENCOUNTER 2021-01-22 09:33 | Outpatient (REF) | payer MEDICARE, OTHER, SELFPAY ==
--- NOTE | 2021-01-22 08:31 | SKI_PTH ---
PATIENT: Donnell Ramey JR LOC: [facility] U#:[id number] AGE/SX: 70/M ROOM: RE01/22/[address]: Guera Reid MD : [id number] BED: DIS: 01/22/2021 SPEC #: [id number] RECD: 01/22/21 12:37 STATUS: PATRICIA REAsia #: [id number] ALETHEA: 01/22/21 08:[address]: Guera Reid DEPT: Surgical Specimen RECD BY: Victorina Zamudio ENTERED: 01/22/21 12:38 SP TYPE: VIRGIE CASON DR: Rayray Plaza DO Tissues: 1 - SKIN BIOPSY(SHAVE/PUNCH) Procedures: SKIN LEVEL 4 Comments: [id number]
== END 2021-01-22 09:34 | disposition home or self-care (01) ==
LOC: LBN 09:33
PROVIDERS: PCP Emergency Medicine; Visit Provider Surgery
DX: C44.229 Squamous cell carcinoma of skin of left ear and external auricular canal (principal); L57.0 Actinic keratosis
CPT/HCPCS: 88305

== ENCOUNTER 2021-01-29 19:11 | Outpatient (REF) | payer MEDICARE, OTHER, SELFPAY ==
[2021-01-29 12:33] LABS: Anion Gap 7.5 mmol/L (3-11); BUN 23 mg/dL (7-18); CO2 28.5 mmol/L (21.0-32.0); Calcium 9.5 mg/dL (8.5-10.1); Chloride 106 mmol/L (98-107); Glucose 114 mg/dL (74-106); Sodium 142 mmol/L (136-145)
[2021-01-29 23:16] LABS: PSA, Screening 3.4 ng/mL (0.0-6.5)
== END 2021-01-29 19:12 | disposition home or self-care (01) ==
LOC: LBN 19:11
PROVIDERS: PCP Emergency Medicine; Visit Provider Emergency Medicine
DX: I10 Essential (primary) hypertension (principal); N40.0 Benign prostatic hyperplasia without lower urinary tract symptoms; Z12.5 Encounter for screening for malignant neoplasm of prostate
CPT/HCPCS: 80048; 84153

== ENCOUNTER → 2021-05-13 07:58 | Outpatient (BNVA) | payer MEDICARE, OTHER, SELFPAY | PROVIDERS: PCP Emergency Medicine; Referring Provider Emergency Medicine; Visit Provider Urology | DX: R31.9 Hematuria, unspecified (principal); Z79.01 Long term (current) use of anticoagulants; I26.99 Other pulmonary embolism without acute cor pulmonale | CPT/HCPCS: 52000; 81003; 99203; 99215 ==

== ENCOUNTER 2021-06-18 01:17 | Outpatient (CLI) | payer MEDICARE, OTHER, SELFPAY ==
--- NOTE | 2021-06-18 07:15 | DI.US_ITS ---
Exam(s) US THYROID EXAM: US THYROID CLINICAL HISTORY: thyroid nodule,GOITER, E04.1,E04.9. TECHNIQUE: Ultrasound thyroid performed using standard protocol. COMPARISON: US US THYROID from 07/13/2019 FINDINGS: ISTHMUS: 3 mm RIGHT LOBE: Size: 5.2 cc by 1.1 AP by 1.4 transverse cm Echogenicity: Homogeneous. Vascularity: Normal. Nodules: Multiple thyroid nodules. There is a 0.8 x 0.4 x 0.5 cm solid hypoechoic nodule in the medi al aspect of the midpole of the right lobe. There are echogenic foci seen peripherally. This is con sistent with a TIRADS level 4 nodule. There is a 0.7 x 0.4 x 0.8 cm solid hypoechoic nodule in the u pper pole of the right lobe of the thyroid gland. There are peripheral echogenic foci noted. The fi ndings are consistent with a TIRADS level 4 nodule. LEFT LOBE: Size: 4.6 cc by 1.8 AP by 1.5 transverse cm Echogenicity: Homogeneous Vascularity: Normal. Nodules: Multiple thyroid nodules. There is a 1.3 x 1.4 x 1.6 cm solid isoechoic nodule in the lower pole. Echogenic foci are noted. This is consistent with a TIRADS level 4 nodule. OTHER FINDINGS: No abnormal lymph nodes are seen in the soft tissues. IMPRESSION: 1. Multinodular thyroid gland. 2. Three TIRADS level 4 nodules. DATA REPOSITORY:
--- NOTE | 2021-06-18 13:30 | DI.US_ITS ---
APPROVED REPORT EXAM: Comprehensive 2D, Doppler, and color-flow Echocardiogram Patient Location: Out-Patient Parts Washer: Pauline Gunter RDCS (AE) Indications: Dilated Ascending aorta, HTN Other Information Study Quality: Adequate Conclusion Normal left ventricular wall thickness and chamber size. Estimated ejection fraction is 55 to 60%. There are no segmental wall motion abnormalities Normal right ventricular size and systolic function Both atria are normal in size The aortic valve is trileaflet and mildly sclerotic without stenosis or regurgitation Mildly thickened mitral leaflets. Trace mitral regurgitation Normal tricuspid valve with trace regurgitation Normal pulmonic valve with trace regurgitation Dilated ascending aorta measuring 4.16 cm Compared to the previous study of June 2020, ejection fraction now appears normal The ascending aorta dimension has increased from 4.12-4.16 Wall motion Left Ventricle The left ventricle is normal size. The left ventricular systolic function is normal. The left ventric ular ejection fraction is within the normal range. Mild concentric left ventricular hypertrophy. Hype rtensive heart disease. There is normal LV segmental wall motion. There is no ventricular septal defe ct visualized. LVEF is 55-60%. Right Ventricle The right ventricle is normal size. The right ventricular systolic function is normal. The RVSP is 31 .7mmHg. Atria The left atrium size is normal. The right atrium size is normal. The interatrial septum is intact wit h no evidence for an atrial septal defect. Aortic Valve The Aortic valve is mildly sclerotic. Aortic valve is trileaflet. There is no aortic valvular stenosi s. No aortic regurgitation is present. Mitral Valve Mitral valve leaflets are mildly thickened. No evidence of mitral valve stenosis. Trace mitral regurg itation. Tricuspid Valve The tricuspid valve is normal in structure. There is no tricuspid valve stenosis. Trace tricuspid reg urgitation. Pulmonic Valve The pulmonary valve is normal in structure. There is no pulmonic valvular stenosis. Trace pulmonic re gurgitation. Great Vessels The aortic root is normal in size. The ascending aorta is moderately dilated.4.16 cm Aortic arch is n ormal in caliber. IVC is normal in size and collapses >50% with inspiration. Pericardium There is no pericardial effusion. 2D Dimensions IVSD d PLAX 0.87 cm M: 0.6-1.2 LV Vol A2C d MOD 84.4 mL LVPW d PLAX 0.89 cm M: 0.6 - 1.2 LV Vol A4C d MOD 134.2 mL LVID d PLAX 5.11 cm M: 4.2 - 5.8 LA vol/ BSA A2C s A-L 10.9 mL/m2 LVDs 3.50 cm M: 2.5 - 4.0 LA vol/ BSA A4C s A-L 21.5 mL/m2 Ao Root d 3.12 cm M: 3.1 - 3.7 LA Vol/ BSA Biplane s A-L 16.3 mL/m2 RA Area A4C 17.29 cm2 LA Area A4C s MOD 15.80 cm2 RA Vol/ BSA A4C s A-L 26.7 mL/m2 LA Area A2C s MOD 10.56 cm2 Ao Asc Diam d 4.16 cm M: 2.6 - 3.4 LV EF A4C MOD 56.5 % LV EF Teichholz 58.8 % LV EF A2C MOD 55.5 % LVEF (Fabian's) 54.90 % M: 52 - 72 LV EF Biplane MOD 54.9 % LV Volume 81.22 mL M: 62 - 150 SV 59.50 mL LV Volume Index 40.61 mL/m2 M: 34 - 74 SV Index 29.67 mL/m2 LV Vol Biplane MOD 108.4 mL FS 31.25 % M-Mode TAPSE 2.21 cm (M/F) >1.7 LV Diastology MV E' medial 0.064 (>0.07 m/s) E/A Ratio 0.8 LV E/e MED 9.70 (<14) MV E Vmax 0.63 (0.4-1.3 m/s) MV E' lateral 0.079 (>0.1 m/s) MV A Vmax 0.75 (0.4-1.3 m/s) LV E/e LAT 7.90 (<14) MV E/A Ratio 0.79 MV E/E' medial 9.72 MV E/E' lateral 7.92 Aortic Valve LVOT Area 2.76 cm2 AoV Area Vmax 2.18 cm2 LVOT Vmax 1.10 m/s AoV Area/ BSA (Vmax) 1.09 cm2/m2 LVOT Mean Haider. 0.67 m/s GIANCARLO Mean Haider. 1.87 cm2 LVOT Peak Grad 4.8 mmHg GIANCARLO Mean Haider. Index 0.93 cm2/m2 LVOT Mean Grad 2.2 mmHg LVOT VTI 0.258 m LVOT Diam s 1.85 cm AoV Vmax 1.38 m/s Velocity Ratio 0.79 AoV Mean Haider. 0.99 m/s AoV Peak Grad 7.6 mmHg LVOT SV 71.18 mL AoV Mean Grad 4.3 mmHg AoV VTI 0.332 m AoV Area VTI 2.14 cm2 AoV Area/ BSA (VTI) 1.07 cm/m2 Mitral Valve MV DT 224 (160-240 msec) MV PHT 65 msec MV Area PHT 3.39 cm2 MV VTI 0.380 m MV Area VTI 1.87 (4.0-6.0 cm2) Pulmonary Valve PV Vmax 0.89 (0.5-1.5 m/s) RVOT Peak Gr. 1.87 mmHg PV Peak Grad 3.1 mmHg RVOT Mean Gr. 0.95 mmHg PV Mean Grad 1.7 mmHg RVOT VTI 0.138 m PV VTI 0.182 m RVOT Vmax 0.68 m/s Tricuspid Valve TR Peak Grad 28.6 mmHg TR Vmax 2.68 m/s RA Pressure 3.00 mmHg RVSP (TR) 31.7 mmHg
== END 2021-06-18 01:37 ==
PROVIDERS: PCP Emergency Medicine; Visit Provider Emergency Medicine
DX: E04.9 Nontoxic goiter, unspecified; I10 Essential (primary) hypertension; I77.810 Thoracic aortic ectasia; I35.8 Other nonrheumatic aortic valve disorders
CPT/HCPCS: 93306; 76536

== ENCOUNTER 2022-03-20 04:15 | Outpatient (CLI) | payer MEDICARE, OTHER, SELFPAY ==
[2022-03-20 08:29] LABS: HCT 45.1 % (40.0-50.0); HGB 15.2 g/dL (13.5-17.5); MCH 30.8 pg (27.0-33.0); MCHC 33.7 % (32.0-36.0); MCV 91 fL (80-95); MPV 10.9 fL (8.0-11.0); Platelet Count 142 10^3/uL (130-400); RBC 4.94 10^6/uL (4.36-5.78); RDW 12.5 % (11.8-14.1); RDW-SD 41.6 fL; WBC 5.78 10^3/uL (4.4-10.8)
[2022-03-20 09:21] LABS: ALT 26 U/L (16-63); AST 14 U/L (15-37); Albumin 3.9 g/dL (3.4-5.0); Alkaline Phosphatase 81 U/L (46-116); Anion Gap 7.1 mmol/L (3-11); BUN 18 mg/dL (7-18); Bilirubin, Total 1.4 mg/dL (0.2-1.0); CO2 27.9 mmol/L (21.0-32.0); CREATININE 0.9 mg/dL (0.70-1.30); Calcium 9.5 mg/dL (8.5-10.1); Chloride 104 mmol/L (98-107); Glucose 118 mg/dL (74-106); Potassium 4.3 mmol/L (3.5-5.1); Sodium 139 mmol/L (136-145)
[2022-03-20 09:32] LABS: Calculated LDL 62 mg/dL (<100); Cholesterol 139 mg/dL (<200); HDL Cholesterol 71 mg/dL (40-60); Triglyceride 32 mg/dL (<150)
[2022-03-20 19:11] LABS: PSA, Diagnostic 3.7 ng/mL (<=6.5)
== END 2022-03-20 04:16 | disposition home or self-care (01) ==
LOC: LBO 04:15
PROVIDERS: PCP Family Medicine; Visit Provider Family Medicine
DX: E78.5 Hyperlipidemia, unspecified (principal); I10 Essential (primary) hypertension; I26.99 Other pulmonary embolism without acute cor pulmonale; N40.0 Benign prostatic hyperplasia without lower urinary tract symptoms; Z79.01 Long term (current) use of anticoagulants
CPT/HCPCS: 36415; 80053; 80061; 85027; 84153

== ENCOUNTER → 2022-06-25 01:00 | Outpatient (CLI) | payer MEDICARE, OTHER, SELFPAY ==
--- NOTE | 2022-06-25 07:24 | DI.US_ITS ---
APPROVED REPORT EXAM: Comprehensive 2D, Doppler, and color-flow Echocardiogram Patient Location: Out-Patient Creative Services Designer: Pauline Gunter RDCS (AE) Indications: aortic dilatation, HTN Other Information Study Quality: Adequate Conclusion Normal left ventricular wall thickness and chamber size. Estimated ejection fraction is 55 to 60%. Wall motion is normal Normal right ventricular size and systolic function Both atria are normal in size Aortic valve is sclerotic and trileaflet without stenosis or regurgitation Dilated ascending aorta measuring 4.25 cm Wall motion Left Ventricle The left ventricle is normal size. The left ventricular systolic function is normal. The left ventric ular ejection fraction is within the normal range. There is normal left ventricular wall thickness. T here is normal LV segmental wall motion. There is no ventricular septal defect visualized. LVEF is 58 %. Right Ventricle The right ventricle is normal size. The right ventricular systolic function is normal. Atria The left atrium size is normal. The right atrium size is normal. The interatrial septum is intact wit h no evidence for an atrial septal defect. Aortic Valve The Aortic valve is sclerotic. Aortic valve is trileaflet. There is no aortic valvular stenosis. No a ortic regurgitation is present. Mitral Valve The mitral valve is normal in structure. No evidence of mitral valve stenosis. Trace mitral regurgita tion. Tricuspid Valve The tricuspid valve is normal in structure. There is no tricuspid valve stenosis. Trace tricuspid reg urgitation. Unable to assess PA pressure. Pulmonic Valve The pulmonary valve is normal in structure. There is no pulmonic valvular stenosis. There is no pulmo santy valvular regurgitation. Great Vessels The aortic root is normal in size. The ascending aorta is moderately dilated.4.25 cm The ascending ao rta is mildly dilated. IVC is normal in size and collapses >50% with inspiration. Pericardium There is no pericardial effusion. 2D Dimensions IVSD d PLAX 0.80 cm M: 0.6-1.2 LV Vol A2C d MOD 194.5 mL LVPW d PLAX 0.84 cm M: 0.6 - 1.2 LV Vol A4C d MOD 182.1 mL LVID d PLAX 5.27 cm M: 4.2 - 5.8 LA vol/ BSA A2C s A-L 30.1 mL/m2 LVDs 3.70 cm M: 2.5 - 4.0 LA vol/ BSA A4C s A-L 23.1 mL/m2 Ao Root d 3.27 cm M: 3.1 - 3.7 LA Vol/ BSA Biplane s A-L 27.1 mL/m2 RA Area A4C 16.64 cm2 LA Area A4C s MOD 16.17 cm2 RA Vol/ BSA A4C s A-L 23.7 mL/m2 LA Area A2C s MOD 18.97 cm2 Ao Asc Diam d 4.25 cm M: 2.6 - 3.4 LV EF A4C MOD 58.1 % LV EF Teichholz 55.6 % LV EF A2C MOD 58.2 % LVEF (Fabian's) 59.16 % M: 52 - 72 LV EF Biplane MOD 59.2 % LV Volume 144.32 mL M: 62 - 150 SV 113.95 mL LV Volume Index 72.16 mL/m2 M: 34 - 74 SV Index 56.82 mL/m2 LV Vol Biplane MOD 192.6 mL FS 29.15 % M-Mode TAPSE 2.02 cm (M/F) >1.7 LV Diastology MV E' medial 0.060 (>0.07 m/s) E/A Ratio 0.9 LV E/e MED 10.75 (<14) MV E Vmax 0.64 (0.4-1.3 m/s) MV E' lateral 0.058 (>0.1 m/s) MV A Vmax 0.75 (0.4-1.3 m/s) LV E/e LAT 11.10 (<14) MV E/A Ratio 0.84 MV E/E' medial 10.78 MV E/E' lateral 11.14 Aortic Valve LVOT Area 3.56 cm2 AoV Area Vmax 2.88 cm2 LVOT Vmax 1.05 m/s AoV Area/ BSA (Vmax) 1.43 cm2/m2 LVOT Mean Haider. 0.70 m/s GIANCARLO Mean Haider. 2.76 cm2 LVOT Peak Grad 4.4 mmHg GIANCARLO Mean Haider. Index 1.38 cm2/m2 LVOT Mean Grad 2.3 mmHg LVOT VTI 0.240 m LVOT Diam s 2.10 cm AoV Vmax 1.30 m/s Velocity Ratio 0.80 AoV Mean Haider. 0.90 m/s AoV Peak Grad 6.8 mmHg LVOT SV 85.30 mL AoV Mean Grad 3.7 mmHg AoV VTI 0.287 m AoV Area VTI 2.97 cm2 AoV Area/ BSA (VTI) 1.48 cm/m2 Mitral Valve MV DT 203 (160-240 msec) MV PHT 59 msec MV Area PHT 3.74 cm2 MV VTI 0.336 m MV Area VTI 2.54 (4.0-6.0 cm2) Pulmonary Valve PV Vmax 0.79 (0.5-1.5 m/s) RVOT Peak Gr. 1.36 mmHg PV Peak Grad 2.5 mmHg RVOT Mean Gr. 0.70 mmHg PV Mean Grad 1.4 mmHg RVOT VTI 0.145 m PV VTI 0.173 m RVOT Vmax 0.58 m/s
== END ==
PROVIDERS: PCP Family Medicine; Visit Provider Family Medicine
DX: I35.8 Other nonrheumatic aortic valve disorders; I10 Essential (primary) hypertension; I77.810 Thoracic aortic ectasia
CPT/HCPCS: 93306

== ENCOUNTER 2023-03-16 02:59 | Outpatient (CLI) | payer MEDICARE, OTHER, SELFPAY ==
[2023-03-16 15:09] LABS: HGB 15.8 g/dL (13.5-17.5); MCHC 34.3 % (32.0-36.0); MCV 90 fL (80-95); MPV 10.4 fL (8.0-11.0); Platelet Count 191 10^3/uL (130-400); RBC 5.09 10^6/uL (4.36-5.78); RDW 12.8 % (11.8-14.1); RDW-SD 42.3 fL; WBC 6.15 10^3/uL (4.4-10.8)
[2023-03-16 15:11] LABS: Bilirubin Negative (Negative); Blood Negative (Negative); Clarity Clear (Clear); Glucose Negative (Negative); Ketones Negative (Negative); Leukocyte Esterase Negative (Negative); Nitrite Negative (Negative); Specific Gravity 1.025 (1.005-1.025); pH 5.5 (5-8)
[2023-03-16 15:48] LABS: ALT 25 U/L (16-63); AST 16 U/L (15-37); Albumin 4.3 g/dL (3.4-5.0); Alkaline Phosphatase 86 U/L (46-116); Anion Gap 8.1 mmol/L (3-11); BUN 22 mg/dL (7-18); Bilirubin, Total 2.6 mg/dL (0.2-1.0); CO2 26.9 mmol/L (21.0-32.0); Calcium 9.8 mg/dL (8.5-10.1); Chloride 105 mmol/L (98-107); Estimated GFR 78.49 (mL/min/1.73m2); Glucose 102 mg/dL (74-106); Potassium 4.3 mmol/L (3.5-5.1); Sodium 140 mmol/L (136-145); TSH (W/Ref FT4) 1.61 uIU/mL (0.36-3.74); Total Protein 7.5 g/dL (6.4-8.2)
[2023-03-17 10:05] LABS: PSA, Diagnostic 3.9 ng/mL (<=6.5)
== END 2023-03-16 03:00 | disposition home or self-care (01) ==
LOC: LBO 03:00
PROVIDERS: PCP Family Medicine; Visit Provider Family Medicine
DX: N40.0 Benign prostatic hyperplasia without lower urinary tract symptoms (principal); E78.5 Hyperlipidemia, unspecified; I10 Essential (primary) hypertension; I77.819 Aortic ectasia, unspecified site; E04.1 Nontoxic single thyroid nodule; R31.9 Hematuria, unspecified
CPT/HCPCS: 36415; 80053; 85027; 81003; 84153; 84443

== ENCOUNTER → 2023-04-23 09:36 | Outpatient (BNVA) | payer MEDICARE, OTHER, SELFPAY | PROVIDERS: PCP Family Medicine; Referring Provider Family Medicine; Visit Provider Urology | DX: R31.9 Hematuria, unspecified (principal); Z79.01 Long term (current) use of anticoagulants; Z86.711 Personal history of pulmonary embolism | CPT/HCPCS: 81003; 99213 ==

== ENCOUNTER → 2023-05-05 02:19 | Outpatient (CLI) | payer MEDICARE, OTHER, SELFPAY ==
--- NOTE | 2023-05-05 07:15 | DI.CT_ITS ---
Exam(s) CT ABDOMEN PELVIS WO/W EXAM: CT ABDOMEN PELVIS WO/W CLINICAL HISTORY: ? mas, hematuria, r31.9. TECHNIQUE: Imaging Protocol: Axial computed tomography images with coronal and sagittal reformatted images were created and reviewed CONTRAST MATERIAL: Intravenous: Omnipaque-350 100cc Oral: None COMPARISON: CT CT ABDOMEN PELVIS W from 01/22/2019 FINDINGS: VISUALIZED LUNG BASES: Mild increased markings right lung base posterior basal segment. No pleural e ffusions.. ABDOMEN: There is no ascites. LIVER: There are a few focal hypodensities in the liver again noted which appear unchanged from January 13 and have the appearance of small benign hemangiomas. No dilated intrahepatic ducts. GALLBLADDER/BILIARY: Gallbladder is again noted be surgically absent. There are no dilated intrahepa tic ducts. CBD is not dilated. PANCREAS: No evidence of pancreatic mass nor dilatation of the pancreatic duct. SPLEEN: Spleen is not enlarged. No obvious intrasplenic lesions. Splenic and portal veins are paten t. ADRENALS: There are no significant adrenal masses. KIDNEYS:There is a benign cyst in the lateral cortex of the left kidney which measures 4.5 by 4.0 cm. Does not require further imaging workup. No other focal renal findings. No solid renal masses. N o calculi nor hydronephrosis.. No significant filling defects in the renal pelves. There is a solitary ureter on each side. Course and caliber the ureters is normal bilaterally. Prostate gland is enlarged and lobulated and indents the bladder base. No other masses evident in the bladder. ABDOMINAL AORTA: Abdominal aorta is not enlarged. LYMPH NODES:There is no retroperitoneal nor paraaortic adenopathy. ABDOMINAL WALL: No evidence of significant anterior abdominal wall nor inguinal hernia. GI: There is no evidence of bowel obstruction, free air, nor abscess. Evidence of left inguinal hernia repair. PELVIS: GI: No evidence of appendicitis.No evidence of sigmoid diverticulitis. LYMPH NODES: There is no intrapelvic nor inguinal adenopathy. REPRODUCTIVE: Enlarged prostate gland. Measures 7 cm wide by 5 cm AP. No obturator adenopathy. Josh inal vesicles unremarkable. URINARY BLADDER: Uniformly thickened bladder wall. Lobulated prostate indents the bladder base. OSSEOUS: No fractures and no significant osseous lesions. Multilevel chronic degenerative disc disease. IMPRESSION: 1. No radiopaque calculi nor solid lesions seen in the kidneys. 2. There is a benign cyst in the lateral cortex of the left kidney measuring 4.5 x 4.0 cm. This has simple benign appearance. 3. Solitary nondilated ureter on each side that obvious filling defects therein. 4. Large lobulated prostate gland dense the bladder base. Clinically indicated follow-up cystoscopy can be performed RADIATION DOSE DELIVERED: 2,603.84mGy.cm Total DLP DATA REPOSITORY: All CT scans at this facility are submitted to the National Radiology Data Registry (NRDR) Dose Index Registry (DIR) with the [employer] (ACR). RADIATION OPTIMIZATION: All CT scans at this facility use at least one of these dose optimization te chniques: automated exposure control; mA and/or kV adjustment per patient size (includes targeted exa ms where dose is matched to clinical indication); or iterative reconstruction.
[2023-05-05] MEDS: Normal Saline - Diluent 50 ML VIAL IJ (10:25)
[2023-05-05] MEDS: Normal Saline Flush 10 ML SYR IJ (10:26)
[2023-05-05] MEDS: Omnipaque 350 MG/ML 500 ML BTL-Imaging package IJ (10:26)
== END ==
PROVIDERS: PCP Family Medicine; Visit Provider Urology
DX: R31.9 Hematuria, unspecified (principal); N28.1 Cyst of kidney, acquired; R93.41 Abnormal radiologic findings on diagnostic imaging of renal pelvis, ureter, or bladder
CPT/HCPCS: 74178

== ENCOUNTER 2023-05-12 03:15 | Outpatient (CLI) | payer MEDICARE, OTHER, SELFPAY ==
[2023-05-12 10:53] LABS: ALT 27 U/L (16-63); AST 17 U/L (15-37); Albumin 3.8 g/dL (3.4-5.0); Alkaline Phosphatase 82 U/L (46-116); Anion Gap 9.7 mmol/L (3-11); BUN 17 mg/dL (7-18); Bilirubin, Direct 0.3 mg/dL (0.0-0.2); Bilirubin, Total 1.5 mg/dL (0.2-1.0); CO2 24.3 mmol/L (21.0-32.0); CREATININE 0.9 mg/dL (0.70-1.30); Calcium 9.2 mg/dL (8.5-10.1); Chloride 105 mmol/L (98-107); Estimated GFR 89.07 (mL/min/1.73m2); Glucose 111 mg/dL (74-106); INR 0.9 (0.9-1.1); Potassium 4.4 mmol/L (3.5-5.1); Prothrombin Time 9.3 sec (9.3-11.0); Sodium 139 mmol/L (136-145); Total Protein 6.8 g/dL (6.4-8.2)
== END 2023-05-12 03:16 | disposition home or self-care (01) ==
LOC: LBO 03:15
PROVIDERS: PCP Family Medicine; Visit Provider Family Medicine
DX: R17 Unspecified jaundice (principal)
CPT/HCPCS: 36415; 80053; 82248; 85610

== ENCOUNTER → 2023-07-01 01:41 | Outpatient (CLI) | payer MEDICARE, OTHER, SELFPAY ==
--- NOTE | 2023-07-01 12:29 | DI.US_ITS ---
APPROVED REPORT EXAM: Comprehensive 2D, Doppler, and color-flow Echocardiogram Patient Location: Out-Patient Robotics Testing Technician: Pauline Gunter RDCS (AE) Indications: Aortic dilation, HTN Other Information Study Quality: Adequate. Technically limited study due to body habitus. Conclusion Normal left ventricular wall thickness and chamber size. Ejection fraction is 50 to 55%. There are no segmental wall motion abnormalities The right ventricle appears mildly dilated with normal systolic function Normal left atrial size. Mildly enlarged right atrium Aortic valve is mildly sclerotic and trileaflet without stenosis or regurgitation Dilated ascending aorta measuring 4.2 cm Compared to prior study there has been no change in the ascending aortic dimension Wall motion Left Ventricle The left ventricle is normal size. The left ventricular systolic function is lnormal. The left ventri cular ejection fraction is within the normal range. There is normal left ventricular wall thickness. There is normal LV segmental wall motion. There is no ventricular septal defect visualized. LVEF is 5 0-55%. Right Ventricle The right ventricle is mildly enlarged The right ventricular systolic function is normal. Atria The left atrium size is normal. The right atrium is mildly dilated The interatrial septum is intact w ith no evidence for an atrial septal defect. Aortic Valve The aortic valve is mildly sclerotic Aortic valve is trileaflet. There is no aortic valvular stenosis . No aortic regurgitation is present. Mitral Valve The mitral valve is normal in structure. No evidence of mitral valve stenosis. Trace mitral regurgita tion. Tricuspid Valve The tricuspid valve is normal in structure. There is no tricuspid valve stenosis. Trace tricuspid reg urgitation. Unable to assess PA pressure. Pulmonic Valve The pulmonary valve is normal in structure. There is no pulmonic valvular stenosis. Trace pulmonic re gurgitation. Great Vessels The aortic root is normal in size. The ascending aorta is moderately dilated. Aortic arch is normal i n caliber. IVC is normal in size and collapses >50% with inspiration. Pericardium There is no pericardial effusion. 2D Dimensions IVSD d PLAX 0.68 cm M: 0.6-1.2 Ao Root d 3.48 cm M: 3.1 - 3.7 LVPW d PLAX 0.75 cm M: 0.6 - 1.2 Ao Asc Diam d 4.20 cm M: 2.6 - 3.4 LVID d PLAX 5.02 cm M: 4.2 - 5.8 LVDs 3.75 cm M: 2.5 - 4.0 LV EF Teichholz 49.9 % FS 25.39 % LV EDV (Teich) 119.4 mL LV ESV (Teich) 59.9 mL M-Mode TAPSE 2.99 cm (M/F) >1.7 Auto EF LV EDV A4C 142.4 mL LV EDV A2C 169.4 mL LV EDV BP 158.4 mL LV ESV A4C 69.0 mL LV ESV A2C 84.8 mL LV ESV BP 77.0 mL LVEF(%) A4C 51.5 % LVEF(%) A2C 49.9 % LVEF(%) BP 51.4 % LV SV A4C 73.4 ml LV SV A2C 84.6 ml LV SV BP 81.4 ml LV CO A4C 3.6 L/min LV CO A2C 4.5 L/min LV CO BP 4.0 L/min HR A4C 48.83 BPM HR A2C 53.24 BPM LV EDV Index (BP) RV Strain Global Peak Long. Strain A4C 17.33 Global Peak Long. Strain A4C FW 21.54 LA Volume LA Length A4C 4.7 cm LA Length A2C 5.6 cm LA Area A4C s 13.90 cm2 LA Area A2C s 19.70 cm2 LA Vol A4C A-L 35.26 mL LA Vol A2C A-L 58.91 mL LA Vol Biplane A-L 50.0 mL LA Vol/BSA A4C A-L LA Vol/BSA A2C A-L LA Vol/BSA BP A-L 24.6 mL/m2 LA Vol A4C MOD 33.5 mL LA Vol A2C MOD 54.5 mL LA Vol BP MOD 46.7 mL RA Volume RA Area A4C 18.1 cm2 RA ESV A4C (A-L) 52.0mL RA Vol/BSA A4C A-L RA Length A4C 5.3 cm RA ESV A4C (MOD) 48.6mL LV Diastology MV E' medial 0.082 (>0.07 m/s) MV E Vmax 0.60 (0.4-1.3 m/s) MV E/E' MED 7.30 (<14) MV A Vmax 0.90 (0.4-1.3 m/s) MV E' lateral 0.091 (>0.1 m/s) E/A Ratio 0.7 MV E/E' LAT 6.60 (<14) MV E' Average 0.086 m/s MV E/E'(average) 6.93 Aortic Valve AoV Vmax 1.31 m/s LVOT Vmax 1.06 m/s AoV Peak Grad 6.8 mmHg LVOT Peak Grad 4.5 mmHg AoV Area (Vmax) 2.68 cm2 LVOT VTI 0.263 m AoV VTI 0.309 m LVOT Mean Grad 2.0 mmHg AoV Mean Haider. 0.86 m/s LVOT SV 87.18 mL AoV Mean Grad 3.5 mmHg LVOT Diam s 2.05 cm AoV Area (VTI) 2.82 cm2 Velocity Ratio 0.81 Mitral Valve MV DT 309 (160-240 msec) MV Vmax TIPS 0.88 m/s MV Mean Grad 1.0 (<2mmHg) MV VTI 0.290 m Pulmonary Valve PV Vmax 0.94 (0.5-1.5 m/s) RVOT Vmax 0.70 m/s PV Peak Grad 3.5 mmHg RVOT Peak Gr. 2.0 mmHg PV Mean Haider 0.62 m/s RVOT VTI 0.143 m PV Mean Grad 1.8 mmHg RVOT Mean Gr. 1.0 mmHg Tricuspid Valve RA Pressure 3.00 mmHg TV S' 0.12 m/s
== END ==
PROVIDERS: PCP Family Medicine; Visit Provider Family Medicine
DX: I10 Essential (primary) hypertension (principal); I77.819 Aortic ectasia, unspecified site
CPT/HCPCS: 93306

== ENCOUNTER 2023-07-06 01:34 | Outpatient (CLI) | payer MEDICARE, OTHER, SELFPAY ==
--- NOTE | 2023-07-06 06:45 | DI.US_ITS ---
Exam(s) US THYROID EXAM: US THYROID CLINICAL HISTORY: compare to previous US,thyroid nodule, e04.1. TECHNIQUE: Ultrasound thyroid performed using standard protocol. COMPARISON: Prior thyroid ultrasound examination of 06/18/2021. FINDINGS: Thyroid gland size is upper normal. Nodules and colloid cyst again noted bilaterally. The solid nodul es are graded lobe. RIGHT THYROID LOBE: Measures 1.2 cm AP x 1.4 cm wide x 4 cm craniocaudal Nodule #1 this at approximately the mid lobe level. Size: Measures 0.7 x 0.4 x 0.6 cm cm Composition: Solid-2 points Echogenicity: Hypoechoic-2 points Shape: Wider than taller-0 points Margin: Smooth- 0 points Echogenic Foci: This nodule does contain punctate echogenic foci-3 points Total Points for this nodule: 7 ACR Ti-Rads Category: TR5 This TR 5 nodule can be followed as it is less than 1 cm in size Nodule #2 located more inferiorly in the right lobe. Size: Measures 0.5 x 0.6 x 0.5 cm cm Composition: Solid-2 points Echogenicity: Hyperechoic-1 point Shape: Wider than taller- 0 points Margin: Smooth-0 points Echogenic Foci: This nodule also contains punctate echogenic foci-3 points Total points for this nodule: 6 ACR Ti-Rads Category: TR4 This TR 4 level nodule be followed as it measures less than 1.5 cm. ISTHMUS: Normal thickness. The isthmus is again noted to contain a nodule which measures 0.5 x 0.5 x 0.3 cm. Composition: Solid-2 points Echogenicity: Hypoechoic-2 points Shaped: Wider than taller-0 point Margin: Smooth-0 points Echogenic foci: This nodule also contains punctate echogenic foci-3 points Total point for this nodule = 7 therefore this is a TR 5 level nodule buttock can be followed as it m easures less than 1 cm. LEFT THYROID LOBE: Measures 1.9 cm AP x 1.7 wide x 4.8 cm craniocaudal Again noted to contain a dominant solid nodule Nodule #1 Size: Measures 1.6 x 1.4 x 1.4 cm Composition: Solid-2 points Echogenicity: Hypoechoic-2 points Shape: Wider than taller-0 points Margin: Smooth-0 points Echogenic Foci: Contains macro calcifications-1 points Total points for this nodule: 5 ACR Ti-Rads Category: 4 This TR 4 nodule should undergo ultrasound-guided FNA as it measures greater than 1.5 cm. LYMPH NODES: There is no significant adenopathy. IMPRESSION: 1. Bilateral solid nodules as above. 2. The dominant solid nodule which is in the left lobe should undergo ultrasound guided FNA as it is a TR 4 nodule which measures greater than 1.5 cm. 3. There is no significant lymphadenopathy. DATA REPOSITORY:
== END 2023-07-06 01:54 ==
LOC: DI 01:35
PROVIDERS: PCP Family Medicine; Visit Provider Family Medicine
DX: E04.8 Other specified nontoxic goiter (principal)
CPT/HCPCS: 76536

== ENCOUNTER 2024-03-09 09:29 | Outpatient (CLI) | payer MEDICARE, OTHER, SELFPAY ==
--- NOTE | 2024-03-09 08:45 | DI.RAD_ITS ---
Exam(s) XR SHOULDER RT COMPLETE 2+V EXAM: XR SHOULDER RT COMPLETE 2+V CLINICAL HISTORY: RIGHT SHOULDER PAIN. TECHNIQUE: 2D digital imaging was performed. Two views. COMPARISON: No exams were available for comparison FINDINGS: BONES: No acute fracture is present. No bony destructive lesion is seen. Mild spurring at greater tu berosity. JOINTS: No dislocation present. Mild narrowing of the glenohumeral joint space and mild periarticula r spurring. AC joint shows no significant spurring. SOFT TISSUE: Normal. IMPRESSION: Mild degenerative changes of the glenohumeral joint. DATA REPOSITORY: RADIATION DOSE DELIVERED:
== END 2024-03-09 09:30 | disposition home or self-care (01) ==
LOC: DIORS 09:29
PROVIDERS: PCP Family Medicine; Referring Provider Family Medicine; Visit Provider Student in an Organized Health Care Education/Training Program
DX: M12.811 Other specific arthropathies, not elsewhere classified, right shoulder
CPT/HCPCS: 20610; J1010; 73030

== ENCOUNTER 2024-07-04 01:13 | Outpatient (CLI) | payer MEDICARE, OTHER, SELFPAY ==
--- NOTE | 2024-07-04 08:30 | DI.US_ITS ---
APPROVED REPORT EXAM: Comprehensive 2D, Doppler, and color-flow Echocardiogram Patient Location: Out-Patient Assistant Infant Todd[employer] Teacher: Brett Rueda RDCS (AE) Indications: Dilated aortic root Conclusion Normal left ventricular wall thickness and chamber size. Ejection fraction is 55%. Wall motion is n ormal Normal right ventricular size and function Both atria are normal in size Aortic valve is sclerotic and probably trileaflet without stenosis or regurgitation Estimated right ventricular systolic pressure is 28 mmHg Ascending aorta measures 4.1 cm Wall motion Left Ventricle The left ventricle is normal size. The left ventricular systolic function is normal. The left ventric ular ejection fraction is within the normal range. There is normal left ventricular wall thickness. T here is normal LV segmental wall motion. There is no ventricular septal defect visualized. LVEF is 55 %. Right Ventricle The right ventricle is normal size. The right ventricular systolic function is normal. Atria The left atrium size is normal. The right atrium size is normal. The interatrial septum is intact wit h no evidence for an atrial septal defect. Aortic Valve The Aortic valve is sclerotic. Aortic valve is probably trileaflet. There is no aortic valvular steno sis. No aortic regurgitation is present. Mitral Valve The mitral valve is normal in structure. No evidence of mitral valve stenosis. Trace mitral regurgita tion. Tricuspid Valve The tricuspid valve is normal in structure. There is no tricuspid valve stenosis. Trace tricuspid reg urgitation. The RVSP is 27.7 mmHg. Pulmonic Valve The pulmonary valve is normal in structure. There is no pulmonic valvular stenosis. There is no pulmo santy valvular regurgitation. Great Vessels The aortic root is normal in size. The ascending aorta is moderately dilated. Aortic arch is normal i n caliber. IVC is normal in size and collapses >50% with inspiration. Pericardium There is no pericardial effusion. 2D Dimensions IVSD d PLAX 0.83 cm M: 0.6-1.2 Ao Root d 3.55 cm M: 3.1 - 3.7 LVPW d PLAX 0.78 cm M: 0.6 - 1.2 Ao Asc Diam d 4.10 cm M: 2.6 - 3.4 LVID d PLAX 4.44 cm M: 4.2 - 5.8 LVDs 3.19 cm M: 2.5 - 4.0 LV EF Teichholz 54.8 % FS 28.28 % LV EDV (Teich) 89.6 mL LV ESV (Teich) 40.5 mL Stroke Vol Index (Teich) 24.44 M-Mode TAPSE 2.05 cm (M/F) >1.7 Auto EF LV EDV A4C 121.5 mL LV EDV A2C 165.4 mL LV EDV BP 144.0 mL LV ESV A4C 58.2 mL LV ESV A2C 77.0 mL LV ESV BP 67.5 mL LVEF(%) A4C 52.1 % LVEF(%) A2C 53.5 % LVEF(%) BP 53.1 % LV SV A4C 63.3 ml LV SV A2C 88.5 ml LV SV BP 76.5 ml LV CO A4C 3.4 L/min LV CO A2C 4.3 L/min LV CO BP 3.8 L/min HR A4C 53.26 BPM HR A2C 48.85 BPM LV EDV Index (BP) LA Volume LA Length A4C 4.2 cm LA Length A2C 4.6 cm LA Area A4C s 9.86 cm2 LA Area A2C s 18.97 cm2 LA Vol A4C A-L 19.65 mL LA Vol A2C A-L 66.40 mL LA Vol Biplane A-L 37.8 mL LA Vol/BSA A4C A-L LA Vol/BSA A2C A-L LA Vol/BSA BP A-L 18.8 mL/m2 LA Vol A4C MOD 18.6 mL LA Vol A2C MOD 58.3 mL LA Vol BP MOD 34.2 mL RA Volume RA Area A4C 9.9 cm2 RA ESV A4C (A-L) 19.0mL RA Vol/BSA A4C A-L RA Length A4C 4.4 cm RA ESV A4C (MOD) 17.8mL LV Diastology MV E' medial 0.095 (>0.07 m/s) MV E Vmax 0.59 (0.4-1.3 m/s) MV E/E' MED 6.23 (<14) MV A Vmax 0.85 (0.4-1.3 m/s) MV E' lateral 0.107 (>0.1 m/s) E/A Ratio 0.7 MV E/E' LAT 5.56 (<14) MV E' Average 0.101 m/s MV E/E'(average) 5.88 Aortic Valve AoV Vmax 1.23 m/s LVOT Vmax 0.93 m/s AoV Peak Grad 6.0 mmHg LVOT Peak Grad 3.5 mmHg AoV Area (Vmax) 2.66 cm2 LVOT VTI 0.204 m AoV VTI 0.287 m LVOT Mean Grad 2.1 mmHg AoV Mean Haider. 0.82 m/s LVOT SV 71.48 mL AoV Mean Grad 3.1 mmHg LVOT Diam s 2.10 cm AoV Area (VTI) 2.49 cm2 AV Regurg Peak Gr. 6.03 mmHg Velocity Ratio 0.76 Mitral Valve MV DT 192 (160-240 msec) MV Vmax TIPS 0.75 m/s MV Mean Grad 0.6 (<2mmHg) MV VTI 0.264 m Pulmonary Valve PV Vmax 0.80 (0.5-1.5 m/s) RVOT Vmax 0.58 m/s PV Peak Grad 2.6 mmHg RVOT Peak Gr. 1.4 mmHg PV Mean Haider 0.53 m/s RVOT VTI 0.116 m PV Mean Grad 1.3 mmHg RVOT Mean Gr. 0.6 mmHg Tricuspid Valve RA Pressure 3.00 mmHg TR Vmax 2.48 m/s TR Peak Grad 24.6 mmHg RVSP (TR) 27.7 mmHg
== END 2024-07-04 01:33 ==
LOC: DI 01:13
PROVIDERS: PCP Family Medicine; Visit Provider Family Medicine
DX: I77.810 Thoracic aortic ectasia (principal)
CPT/HCPCS: 93306

== ENCOUNTER → 2025-04-27 10:42 | Outpatient (BNVA) | payer MEDICARE, OTHER, SELFPAY | PROVIDERS: PCP Family Medicine; Referring Provider Family Medicine; Visit Provider Physical Therapy Assistant | DX: Z12.11 Encounter for screening for malignant neoplasm of colon (principal); Z86.0101 Personal history of adenomatous and serrated colon polyps | CPT/HCPCS: S0285 ==

== ENCOUNTER 2025-05-08 08:26 | Day surgery (SDC) | payer MEDICARE, OTHER, SELFPAY ==
--- NOTE | 2025-05-07 11:27 | W.PM.DSUDISC ---
Date of service: 05/08/25 Discharge Plan Disposition Patient Disposition: Home Condition: Good Discharge Details Reason For Visit: screening colonoscopy Attending Provider: Dell Ro Primary Care Provider: Helga Kamara Home Meds and New Rx's Prescriptions: Continued lisinopril 20 mg tablet 20 mg PO DAILY Qty: 90 3RF atorvastatin 20 mg tablet 20 mg PO DAILY Qty: 90 3RF Held apixaban 2.5 mg tablet 2.5 mg PO BID Qty: 180 4RF Hold Instructions: Resume on 05/09/25. Discharge Instructions Instructions: Colon polyps Additional Instructions: Dr. Ramey, I enjoyed meeting you today, and I hope you are comfortable through the procedure. Things went very smoothly. I did find, and removed, 5 polyps today. These were small to medium in size, and none of them have any features that are particularly worrisome to the naked eye. As we discussed beforehand, these will all be sent to the pathologist. In a week or so they will send me a review of the exact nature of the polyps, and I can offer any other recommendations regarding future colonoscopies. If you need anything, or have any questions at all, please do not hesitate to call at [phone] 1. If tolerated, consume a soft, low fiber diet for 1-2 days. 2. Do not drive, drink alcohol, operate machinery, make critical decisions, or do activities that require coordination or balance for 24 hours. 3. Because air was put into your colon during the procedure, expelling air from your rectum (passing gas or farting) is normal. 4. You may not have a bowel movement for 1-3 days because of the colonoscopy prep. This is normal. 5. Go directly to the emergency room if you notice any of the following: Develop chills (warm to touch), or if you have a thermometer and your temperature is above 101 Difficulty breathing or difficultly swallowing Persistent vomiting Severe abdominal pain, other than gas cramps Severe chest pain Black, tarry stools Any bleeding ? exceeding one tablespoon 6. Call your physician if the site where your intravenous was started becomes red, swollen, painful, and warm to touch. 7. Your physician has reviewed your pre-procedure medications. Please continue to take those medications as previously ordered. You will be given specific information/education regarding any changes to your medications before leaving. Activity:: Activity as Tolerated Diet:: As Tolerated Discharge Orders Discharge Orders: Discharge Order (Routine); Ordered 05/07/25 Ordered By: Dell Ro DS: Diagnosis Discharge Diagnosis (1) Encounter for screening colonoscopy: Status: Acute Asessment and Plan: Follow-up on polypectomy results
--- NOTE | 2025-05-07 11:28 | COLE_ITS ---
Date of service: 05/08/25 Time of Service: 10:35 Colonoscopy Report Date of procedure: 05/08/25 Pre-op diagnosis general: screening colonoscopy Post-op diagnosis procedure note: other (Colon polyps) Procedure: colonoscopy with polypectomy Surgeon: Dell Ro Anesthesia Type: General:No Airway Estimated blood loss (mL): 5 Pathology: other (0.5 cm pedunculated ascending colon polyp, 0.5 cm pedunculated polyps at 80, 75, and 70 cm. 0.25 cm flat polyp at 65 cm) Complications: None Disposition: same day Indications: Denzel is a 75 year old man with a history of adenomatous polyps. He needs his next screening colonoscopy Prep: Miralax/Dulcolax Procedure Start Time: 09:52 Procedure End Time: 10:05 Retraction Time: 10 Findings: 0.5 cm pedunculated ascending colon polyp, 0.5 cm pedunculated polyps at 80, 75, and 70 cm. 0.25 cm flat polyp at 65 cm Procedure Description: After the induction of anesthesia, and with the patient in left lateral decubitus position, I began by performing an external anorectal exam.? Perineum and skin were normal, as was the anal verge.? There was no evidence of external hemorrhoids.? Next, I performed a digital rectal exam.? I did not appreciate any abnormal findings.? Next, I advanced a colonoscope into the rectal vault.? I performed retroflexion.? This appeared normal.? Using irrigation, I then advanced the colonoscope beyond the rectal folds and into the sigmoid colon before advancing towards the cecum.? The scope was noted to be in the cecum by identification of the ileocecal valve and appendiceal orifice.?I then began withdrawing the colonoscope using repeated irrigation as necessary for full evaluation of the colonic mucosa. ?There was a 0.5 cm pedunculated polyp within the proximal portion of the ascending colon. This was removed with a energize snare polypectomy. Similarly, 0.5 cm pedunculated polyps were found at 80 cm, 75 cm, and 70 cm. These were all removed with a energize snare. There was minimal bleeding from any of the sites, and resection was completed all of these. Another much smaller polyp, slightly less than 0.25 cm was found around 65 cm from the anal verge. This was also removed with snare polypectomy, although cautery was not used here. There was minimal bleeding. Resection was complete. Once the scope was withdrawn to the level of the rectum, great care was taken to examine portions of the rectal folds.? Finally, the scope was withdrawn and the patient was brought to the same-day surgery recovery unit as the anesthetic wore off. ?The findings and instructions were shared with the patient prior to discharge. [place] Bowel Prep [place] Bowel Prep Right Colon: 3 Left Colon: 3 Transverse Colon: 3 Total Score: 9
--- NOTE | 2025-05-07 18:44 | W.ANESPRE ---
General Info Date of Service Date Performed: 05/08/25 Height: 5 ft 10 in Weight: 82.2 kg Body Mass Index (BMI): 25.9 Surgical Procedure: Operation Date: 05/08/25 09:50 Proposed Procedure Side Surgeon p Jose Ro MD Meds Allergies and Home Medications Allergies Allergy/AdvReac Type Severity Reaction Status Date / Time No Known Allergies Allergy Verified 05/08/25 08:42 Home Medication ?Medication ?Instructions ?Recorded apixaban 2.5 mg tablet 2.5 mg PO BID #180 tabs 02/11/22 atorvastatin 20 mg tablet 20 mg PO DAILY #90 tabs 10/19/24 lisinopril 20 mg tablet 20 mg PO DAILY #90 tabs 10/19/24 Current Visit Medications: Current Medications Generic Name Dose Route Start Last Admin Trade Name Freq PRN Reason Stop Dose Admin Ringer's Solution 1,000 mls @ 80 mls/hr 05/08/25 06:00 IV 06/04/25 23:59 INFUSION COLBY IV Miscellaneous Supplies 1 each 05/08/25 06:00 Iv Access IV 06/04/25 23:59 DIRECTED COLBY Ondansetron HCl 4 mg 05/07/25 11:29 Ondansetron 4 Mg/2 Ml Vial IVP 06/06/25 11:28 Q4H PRN PRN Nausea / Vomiting Sodium Chloride 0 ml 05/08/25 06:00 Normal Saline Flush 10 Ml Syr IV 06/04/25 23:59 PRN PRN Sodium Chloride 0 ml 05/08/25 06:00 Normal Saline 10 Ml Vial IJ 06/04/25 23:59 DIRECTED PRN Sterile Water 0 ml 05/08/25 06:00 Water,Injection,Sterile 10 Ml Vial IJ 06/04/25 23:59 DIRECTED PRN PFSH Active Problems Active Problems: Problem Status Onset Code Encounter for screening colonoscopy Acute Z12.11 Dilated aortic root Acute I77.810 Rotator cuff arthropathy of right shoulder Acute M12.811 Elevated bilirubin Acute R17 Chronic anticoagulation Acute Z79.01 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 Left shoulder pain Acute M25.512 BPH (benign prostatic hyperplasia) Chronic N40.0 Aortic dilatation Acute I77.819 Left leg DVT Acute I82.402 Pulmonary embolism and infarction Acute ~01/21/19 I26.99 Hyperlipidemia Chronic E78.5 Essential hypertension Chronic I10 Tubular adenoma of colon Chronic 06/24/17 D12.6 Medical History Medical History Thyroid nodule US 2019 - no growth in size and bx benign follicular nodule Hematuria s/p cystoscopy RICCI (dyspnea on exertion) HTN (hypertension) Surgical History Surgical History Colonoscopy - MAC (06/24/17) Cholecystectomy Tobacco Smoking/Tobacco Use Status: Former Tobacco Use Passive smoking exposure: Yes Alcohol Alcohol Intake: current Alcohol intake frequency: 0-2 drinks per day Alcohol type: hard liquor Substance Use Substance use: Never Substance use type: does not use Vital Signs and Lab Results Vital Signs Most Recent Vital Signs in EMR: Temp Pulse Resp BP Pulse Ox 36.2 C L 65 16 145/78 H 96 05/08/25 08:45 05/08/25 08:45 05/08/25 08:45 05/08/25 08:45 05/08/25 08:45 Anesthesia Assessment and Plan Anesthesia History Personal History: No History of Anesthesia Complications Family History: No Family History of Anesthesia Complications Exercise Tolerance Exercise Tolerance: Metabolic Equivalents>4 Cardiac & Pulmonary Exam Cardiac Exam: Normal S1/S2 Heart Sounds Pulmonary Exam: Clear Bilateral Breath Sounds Implantable Cardiac Device Does patient have a Pacemaker or an ICD?: No Airway Exam Known Difficult Airway: No Mallampati Class: 3 Mouth Opening: Narrow (< 3cm) Thyromental Distance: Less than 3 cm Neck Range of Motion: Full ROM Neck Circumference: Normal Teeth Condition: Normal Dentition ASA Classification ASA Score: ASA 3 Emergency Case?: No NPO Status NPO Status: NPO Clears >2 hours, Solids >8 hours Anesthesia Plan Resuscitation Status: Full Code Anesthesia Technique: General Anesthesia Airway Planned: Natural Airway Monitors Used: Standard Monitors Preoperative Comments:: 75 yo for colo. Sig PMHx: HTN (lisinopril), Ao dilation, DVT/PE (apixaban). former smoker. ECHO: LVEF 55%, ascending Ao 4.1 cm Previous Anes: - colo, prop, natural airway, no issues.
[2025-05-08 08:45] VITALS: BP 145/78; PULSE 65; RESP 16; TEMP 36.2; O2SAT 96
[2025-05-08] MEDS: Lactated Ringers 1,000 ML 80 ML IV (09:11)
[2025-05-08 09:30] VITALS: BMI 25.9
--- NOTE | 2025-05-08 10:09 | BOWEL_PTH ---
PATIENT: Donnell Ramey JR LOC: [facility] U#:[id number] AGE/SX: 75/M ROOM: RE05/08/[address]: Dell Ro MD : [id number] BED: DIS: 05/08/2025 SPEC #: [id number] RECD: 05/08/25 12:39 STATUS: PATRICIA REQ #: [id number] ALETHEA: 05/08/25 10:[address]: Dell Ro DEPT: Surgical Specimen RECD BY: Victorina Zamudio ENTERED: 05/08/25 12:40 SP TYPE: Bowel OTHR DR: Helga Kamara MD, DC Tissues: 1 - BIOPSY BOWEL 2 - BIOPSY BOWEL 3 - BIOPSY BOWEL 4 - BIOPSY BOWEL 5 - BIOPSY BOWEL Procedures: GROSS AND MICRO LEVEL 4 Comments: [id number]
[2025-05-08 10:30] VITALS: BP 143/11; PULSE 65; RESP 20; TEMP 36.4; O2SAT 96
--- NOTE | 2025-05-08 10:32 | W.ANESPOSTOP ---
Postoperative Evaluation Date, Time and Location Date Performed: 05/08/25 Time Performed: 10:32 Patient Location: Day Surgery Unit Vital Signs Most Recent Imported Vital Signs: Most Recent Vital Signs Temp Pulse Resp BP Pulse Ox 36.4 C L 65 20 143/11 H 96 05/08/25 10:30 05/08/25 10:30 05/08/25 10:30 05/08/25 10:30 05/08/25 10:30 Pain Score Most Recent Pain Score: Most Recent Pain Score Pain Level 0 05/08/25 08:45 Assessment Mental Status: Awake (Alert & Oriented to Patient Baseline) Airway and Respiratory Function: Patent airway with normal (patient baseline) respiratory exam Cardiovascular Function: Hemodynamically Stable Hydration Status: Adequately Hydrated Nausea & Vomiting: No Nausea or Vomiting Pain: Pt. Denies Any Pain Peripheral Nerve Block: Patient did not receive a nerve block
[2025-05-08 10:49] VITALS: BP 117/76; PULSE 62; RESP 20; TEMP 36.9; O2SAT 95
== END 2025-05-08 11:06 | disposition home or self-care (01) ==
LOC: SUR 08:27
PROVIDERS: PCP Family Medicine; Visit Provider Surgery
PROC: 0DJD8ZZ Inspection of Lower Intestinal Tract, Via Natural or Artificial Opening Endoscopic (ICD-10-PCS; CPT 45378; principal; 2025-05-08 09:45)
DX: Z12.11 Encounter for screening for malignant neoplasm of colon (principal); I10 Essential (primary) hypertension; D12.2 Benign neoplasm of ascending colon; D12.4 Benign neoplasm of descending colon
CPT/HCPCS: 45385; 88305; J2704

== ENCOUNTER 2025-05-16 09:45 | Outpatient (CLI) | payer MEDICARE, OTHER, SELFPAY ==
[2025-05-16 12:53] LABS: HCT 47.3 % (40.0-50.0); HGB 15.5 g/dL (13.5-17.5); MCH 30.1 pg (27.0-33.0); MCHC 32.8 % (32.0-36.0); MCV 92 fL (80-95); MPV 10.7 fL (8.0-11.0); Platelet Count 191 10^3/uL (130-400); RBC 5.15 10^6/uL (4.36-5.78); RDW 12.5 % (11.8-14.1); RDW-SD 42.6 fL; WBC 5.83 10^3/uL (4.4-10.8)
[2025-05-16 14:17] LABS: ALT 37 U/L (16-63); AST 19 U/L (15-37); Albumin 4.1 g/dL (3.4-5.0); Alkaline Phosphatase 90 U/L (46-116); Anion Gap 8.3 mmol/L (3-11); BUN 18 mg/dL (7-18); Bilirubin, Total 1.6 mg/dL (0.2-1.0); CO2 27.7 mmol/L (21.0-32.0); Calcium 9.7 mg/dL (8.5-10.1); Chloride 104 mmol/L (98-107); Estimated GFR 77.52 (mL/min/1.73m2); Glucose 114 mg/dL (74-106); Potassium 5.1 mmol/L (3.5-5.1); Sodium 140 mmol/L (136-145); Total Protein 7.3 g/dL (6.4-8.2)
== END 2025-05-16 09:46 | disposition home or self-care (01) ==
LOC: LOS 09:45
PROVIDERS: PCP Family Medicine; Referring Provider Family Medicine; Visit Provider Family Medicine
DX: Z79.01 Long term (current) use of anticoagulants (principal); I10 Essential (primary) hypertension
CPT/HCPCS: 36415; 80053; 85027